=== PATIENT | male | born 1955 | race Caucasian/White ===

== ENCOUNTER 2018-07-08 17:15 | Emergency (ER) | payer BC, SELFPAY ==
[2018-07-08 17:22] VITALS: BP 160/97; PULSE 61; RESP 16; TEMP 36.6; O2SAT 98; BMI 27.5
--- NOTE | 2018-07-08 18:06 | PC.NURSE ---
Pt states he used to take blood pressure medicine for HTN, but after a gastric surgery he was having issues with hypotension and was advised by his doctor to stop the medicine. Today he was not feeling well, and noticed that he had a headache. Took his blood pressure and it was in the 170s. Was advised by his son, who is an RN, to come in and be seen. He did have an episode of chest aching earlier when taking his blood pressure, which has since resolved. Denies shortness of breath, palpitations, or chest pain currently.
[2018-07-08 18:09] VITALS: BP 162/96; PULSE 53; RESP 17; O2SAT 93
--- NOTE | 2018-07-08 18:20 | DI.RAD.S_ITS ---
PROCEDURE: XR ACUTE ABDOMEN SERIES INDICATIONS: vomiting/diarrhea, high blood pressure TECHNIQUE: One view chest and two views of the abdomen were acquired. COMPARISON: None. FINDINGS: Surgical changes and devices: None. Chest: No acute consolidation. There is scattered subsegmental atelectasis and/or scarring Heart size is normal. No pleural effusions. No pneumoperitoneum. Abdomen: Bowel gas pattern is nonspecific. There are some right-sided small bowel loops measuring 2.2 cm in diameter. No definite transition point. There are scattered nonspecific air-fluid levels. No suspicious calcifications. Visualized solid organ contours appear normal. Bones: No suspicious bony lesions. IMPRESSION: No specific pathologic bowel dilatation although several right-sided small bowel loops are prominent raising possibility of early or developing bowel obstruction. As clinically warranted, continued surveillance with abdominal series radiographs could be performed if patient's symptoms do not improve. Dictated by: Zac Delcid M.D. on 07/08/2018 at 19:04 Approved by: Zac Delcid M.D. on 07/08/2018 at 19:06
--- NOTE | 2018-07-08 18:28 | ED_ITS ---
HPI - Nausea/Vomiting/Diarrhea General Chief complaint: Hypertension Stated complaint: LIGHTHEAD, ELEVATED BLOOD PRESSURE,HEAD HURTS Time Seen by Provider: 07/08/18 18:14 Source: patient and family () Limitations: no limitations History of Present Illness HPI Narrative: This is a 63-year-old male that comes to the emergency department with concern for hypertension. Patient states for the last 24 hr he has been having vomiting and diarrhea, he states that his 2 granddaughters that he took 2 the movies yesterday initially had symptoms and then he developed symptoms. He has since stopped vomiting and having diarrhea and has been able to keep down a little bit of Gatorade and a very small amount of food. He gradually developed a headache today, was checking his blood pressure and a 1. 70/115. Patient states his blood pressure been labile at times. He used to take medication for blood pressure but after Jared fundoplication his pressures improved and he eventually had his medications stopping conjunction with his physician. He typically runs about 120/70 on his average. Patient does have a remote history of pericarditis about 30 years ago, he did have cardiac testing at that time. Otherwise he does not have any other major medical issues. He has also had tendon repair as well as hip resurfacing thing. Patient states that the headache was very gradual there is no thunderclap. He states these will happen occasionally when his blood pressure is somewhat high. He states that the headache is actually starting to improve as well. He did have a little bit of chest pain about Eleven or 12 this morning and it resolved. He has had this happen occasionally but does not have any particular rhythm to it. He has not had any shortness of breath he was not urinating he had his 1st urination this afternoon. He is not having any further diarrhea. Related Data Home Medications Medication Instructions Recorded Confirmed hydrochlorothiazide 12.5 mg PO QDAY #0 07/26/17 losartan 50 mg PO QDAY #0 07/26/17 omeprazole 20 mg PO BID #0 07/26/17 Allergies Allergy/AdvReac Type Severity Reaction Status Date / Time morphine [MORPHINE] Allergy Unknown Verified 07/08/18 17:22 Review of Systems Review of Systems All systems reviewed & are unremarkable except as noted in HPI and below Constitutional Denies fever(s), Reports headache(s) and Denies weakness ENT Ears, Nose, Mouth, and Throat: Reports headache(s) Cardiovascular Reports chest pain, Denies diaphoresis, Denies syncope, Denies palpitations and Denies dyspnea Respiratory Denies chest congestion, Denies cough and Denies dyspnea Gastrointestinal Gastrointestinal: Denies abdominal pain, Denies melena, Denies hematochezia, Denies constipation, Reports diarrhea ( resolved), Reports nausea ( resolved) and Reports vomiting ( Resolved) Genitourinary Denies urinary frequency and Reports other ( decreased urine output) Musculoskeletal Denies numbness and Denies tingling Neurologic Denies syncope, Reports headache(s), Denies numbness, Denies tingling and Denies weakness Endocrine Denies palpitations PFSH Medical History GERD (gastroesophageal reflux disease) (Resolved) Pericarditis (Resolved) Surgical History History of Jared fundoplication (Acute) Exam Narrative Exam Narrative: GENERAL: Alert and oriented x three, well-nourished, well- appearing male in mild distress. HEENT: Head normocephalic, atraumatic, EOMI, pupils reactive, face symmetric, moist mucous membranes NECK: Supple, full range of motion CARDIOVASCULAR: Regular rate and rhythm without murmurs, rubs or gallops. RESPIRATORY: Breath sounds equal bilaterally, no wheezes rales or rhonchi. ABDOMEN: Soft, nontender. Normoactive bowel sounds all 4 quadrants. No guarding or rebound, rigidity, no mass EXTREMITIES: Normal range of motion, no clubbing or edema. Neurovascularly intact NEUROLOGICAL: Cranial nerves II through XII grossly intact. Moving all extremities SKIN: Warm, dry, no petechiae, no rashes or lesions. Initial Vital Signs Initial Vital Signs: Vital Signs Temperature 97.9 F 07/08/18 17:22 Pulse Rate 61 07/08/18 17:22 Respiratory Rate 16 07/08/18 17:22 Blood Pressure 160/97 H 07/08/18 17:22 Pulse Oximetry 98 07/08/18 17:22 Course Orders Ordered: ED Orders 07/08/18 18:20 XR acute abdomen series Stat 07/08/18 18:50 Complete Blood Count AUTO DIFF Stat Comprehensive Metabolic Panel Stat Lipase Stat Troponin & CK Cardiac Panel Stat Discontinued Medications Sodium Chloride (Normal Saline 0.9%) 1,000 mls @ 1,000 mls/hr IV BOLUS ONE Stop: 07/08/18 19:19 Last Infusion: 07/08/18 19:58 Dose: 0 mls/hr Admin: 07/08/18 18:57 Dose: 1,000 mls/hr Potassium Chloride (Potassium Chloride) 40 meq PO NOW ONE Stop: 07/08/18 19:35 Last Admin: 07/08/18 19:57 Dose: 40 meq Vital Signs - 8 hr 07/08/18 17:22 07/08/18 18:09 07/08/18 18:55 Temperature 97.9 F Pulse Rate 61 53 L 52 L Respiratory Rate 16 17 12 Blood Pressure 160/97 H Blood Pressure [Right Arm] 162/96 H 161/101 H Pulse Oximetry 98 93 98 07/08/18 20:01 07/08/18 20:17 Temperature Pulse Rate 53 L 52 L Respiratory Rate 12 12 Blood Pressure 174/95 H Blood Pressure [Right Arm] 173/99 H Pulse Oximetry 97 100 MDM - Nausea/Vomiting/Diarrhea Lab Data Attestation: I reviewed the patient's lab results. Result diagrams: 07/08/18 18:50 07/08/18 18:50 Lab Results 07/08/18 07/08/18 Range/Units 18:50 18:50 WBC 5.7 (4.5-11.0) X10^3/uL RBC 5.17 (4.5-5.9) X10^6/uL Hgb 16.3 (13.5-17.5) g/dL Hct 46.1 (41-53) % MCV 89.2 (80-100) fL MCH 31.5 (26-34) PG MCHC 35.3 (30-36) % RDW 12.7 (11.6-14.8) % Plt Count 164 (150-400) X10^3/uL Neut % (Auto) 73.0 (50-75) % Lymph % (Auto) 13.6 L (25-40) % [place] % (Auto) 11.1 (3-14) % Eos % (Auto) 1.9 L (2-4) % Baso % (Auto) 0.4 (0-2) % Neut # (Auto) 4100 (4403-8392) /uL Sodium 141 (137-145) mmol/L Potassium 3.2 L (3.4-5.1) mmol/L Chloride 102 (98-107) mmol/L Carbon Dioxide 27 (22-32) mmol/L BUN 13 (9-20) mg/dL Creatinine 0.80 (0.66-1.25) mg/dL Estimated GFR > 60.0 (>60) mL/min BUN/Creatinine Ratio 16.3 (6-22) Glucose 105 (80-110) mg/dL Calcium 8.7 (8.4-10.2) mg/dL Total Bilirubin 0.6 (0.2-1.3) mg/dL AST 29 (17-59) IU/L ALT 45 (21-72) IU/L Alkaline Phosphatase 66 (38-126) U/L Total Creatine Kinase 149 (55-170) U/L CK-MB (CK-2) 0.79 (<2.37) ng/mL CK-MB (CK-2) Rel Index 0.5 L (1.5-5.0) % Troponin I < 0.012 (0.01-0.034) ng/mL Total Protein 6.6 (6.3-8.2) g/dL Albumin 4.1 (3.5-5.0) g/dL Globulin 2.5 (1.7-4.1) g/dL Albumin/Globulin Ratio 1.6 (1.0-2.8) Lipase 33 (23-300) U/L Imaging Data [facility]AS xray: Radiologist's impression: [address] [address] XRay Report Signed Patient: Bob Doran RMR#: [id number] : 4Acct:[id number] Age/Sex: 63 / MDate of Service: 07/08/18 Loc: ED Accession Number: [id number] Procedure: XR acute abdomen series Ordering Provider: Nettie Callahan D.O. PROCEDURE: XR ACUTE ABDOMEN SERIES INDICATIONS: vomiting/diarrhea, high blood pressure TECHNIQUE: One view chest and two views of the abdomen were acquired. COMPARISON: None. FINDINGS: Surgical changes and devices: None. Chest: No acute consolidation. There is scattered subsegmental atelectasis and/ or scarring Heart size is normal. No pleural effusions. No pneumoperitoneum. Abdomen: Bowel gas pattern is nonspecific. There are some right-sided small bowel loops measuring 2.2 cm in diameter. No definite transition point. There are scattered nonspecific air-fluid levels. No suspicious calcifications. Visualized solid organ contours appear normal. Bones: No suspicious bony lesions. IMPRESSION: No specific pathologic bowel dilatation although several right-sided small bowel loops are prominent raising possibility of early or developing bowel obstruction. As clinically warranted, continued surveillance with abdominal series radiographs could be performed if patient's symptoms do not improve. Dictated by: Zac Delcid M.D. on 07/08/2018 at 19:04 Approved by: Zac Delcid M.D. on 07/08/2018 at 19:06 ECG Data Attestation: I personally reviewed and interpreted this ECG as follows: Prior ECG tracings: available for review Interpretation: Sinus bradycardia with a rate of 54 DE 179 QRS 99 and QTC of 405. patient does not have any ST elevation, nonspecific T-wave changes. Patient has prior EKG which also shows sinus bradycardia, EKG appears similar and ST segments appear similar. MDM Narrative Medical decision making narrative: Patient's systolic pressure has been improving, diastolic is up and down. Lab work shows a slightly decreased potassium but otherwise no major changes, EKG not appear to show any acute changes. It has been greater than 6 hr since onset of any chest pain and resolution. Patient is feeling better in terms of his nausea and vomiting and diarrhea. This has ceased he has been able to keep down oral fluids and food so my suspicion for a bowel obstruction or partial bowel obstruction is low particularly since he had other family members with similar symptoms. Patient given oral dose of potassium and plan to monitor BP regularly at home and follow up with pcp. Discharge Plan Departure Patient Disposition: Home Clinical Impression: Hypertension, Nausea, vomiting and diarrhea Discharge Date/Time: 07/08/18 20:17 Interventions: ED Discharge Assessment Last Done: 07/08/18 20:17 Instructions: DI for High Blood Pressure Activity Restrictions/Additional Instructions: Follow-up with your primary care physician in the next 7-10 days for recheck. Continue to monitor blood pressure at home. General Return Instructions : Return to the Emergency Department for any new or worsening symptoms. Return to the Emergency Department for fevers greater than 100.4 persistent vomiting, black or bloody stools, recurrent chest pain or shortness of breath, persistent or very severe headaches, vision changes, new numbness, weakness, passing out or other new or concerning symptoms. Prescriptions: No Action losartan 50 MG tablet 50 mg PO QDAY Qty: 0 RF: 0 hydrochlorothiazide 12.5 MG capsule 12.5 mg PO QDAY Qty: 0 RF: 0 omeprazole 20 MG tablet,delayed release (DR/EC) 20 mg PO BID Qty: 0 RF: 0
[2018-07-08 18:55] VITALS: BP 161/101; PULSE 52; RESP 12; O2SAT 98
[2018-07-08] MEDS: SODIUM CHLORIDE 0.9% 1,000 ML 1000 ML IV (18:57)
[2018-07-08 18:59] LABS: Add Manual Diff / Slide Review NO; Basophils Percent Auto 0.4 % (0-2); Eosinophils Percent Auto 1.9 % (2-4); Hematocrit 46.1 % (41-53); Hemoglobin 16.3 g/dL (13.5-17.5); Lymphocytes Percent Auto 13.6 % (25-40); Mean Corpuscular HGB Conc 35.3 % (30-36); Mean Corpuscular Hemoglobin 31.5 PG (26-34); Mean Corpuscular Volume 89.2 fL (80-100); Monocytes Percent Auto 11.1 % (3-14); Neutrophils Absolute Auto 4100 /uL (3000-5900); Platelet Count 164 X10^3/uL (150-400); Red Blood Cell Count 5.17 X10^6/uL (4.5-5.9); Red Cell Distribution Width 12.7 % (11.6-14.8); White Blood Cell Count 5.7 X10^3/uL (4.5-11.0)
[2018-07-08 19:14] LABS: Alanine Aminotransferase 45 IU/L (21-72); Albumin 4.1 g/dL (3.5-5.0); Albumin Globulin Ratio 1.6 (1.0-2.8); Alkaline Phosphatase 66 U/L (38-126); Aspartate Aminotransferase 29 IU/L (17-59); BUN Creatinine Ratio 16.3 (6-22); Bilirubin Total 0.6 mg/dL (0.2-1.3); Blood Urea Nitrogen 13 mg/dL (9-20); Calcium 8.7 mg/dL (8.4-10.2); Carbon Dioxide 27 mmol/L (22-32); Chloride 102 mmol/L (98-107); Creatine Kinase 149 U/L (55-170); Estimated Glomerular Filt Rate > 60.0 mL/min (>60); Globulin 2.5 g/dL (1.7-4.1); Glucose 105 mg/dL (80-110); HEMOLYSIS 17 (0-50); Lipase 33 U/L (23-300); Potassium 3.2 mmol/L (3.4-5.1); Sodium 141 mmol/L (137-145); Total Protein 6.6 g/dL (6.3-8.2)
[2018-07-08 19:26] LABS: Troponin I < 0.012 ng/mL (0.01-0.034)
[2018-07-08 19:30] LABS: CKMB % Relative Index 0.5 % (1.5-5.0); Creatine Kinase MB 0.79 ng/mL (<2.37)
[2018-07-08] MEDS: POTASSIUM CHLORIDE 20 MEQ/15 ML UDC 40 MEQ PO (19:57)
[2018-07-08 20:01] VITALS: BP 173/99; PULSE 53; RESP 12; O2SAT 97
[2018-07-08 20:17] VITALS: BP 174/95; PULSE 52; RESP 12; O2SAT 100
== END 2018-07-08 20:17 | disposition home or self-care (01) ==
PROVIDERS: Emergency Provider Emergency Medicine; Family Provider Family Medicine; PCP Family Medicine
DX: I10 Essential (primary) hypertension (principal); R11.2 Nausea with vomiting, unspecified; R19.7 Diarrhea, unspecified
CPT/HCPCS: 36591; 74022; 80053; 82550; 82553; 83690; 84484; 85025; 93005; 96360; 99283; 99285

== ENCOUNTER 2019-07-08 23:11 | Emergency (ER) | payer BC, SELFPAY ==
[2019-07-08 23:15] VITALS: BP 175/99; PULSE 53; RESP 20; TEMP 36.9; O2SAT 96; BMI 27.9
--- NOTE | 2019-07-08 23:24 | DI.RAD.S_ITS ---
PROCEDURE: XR CHEST 1V INDICATIONS: chest pain TECHNIQUE: One view of the chest was acquired. COMPARISON: [facility], , CHEST 1VW (PORTABLE), 06/24/2010, 23:39. FINDINGS: Surgical changes and devices: None. Lungs and pleura: Lungs are clear. No pleural effusions or pneumothorax. Mediastinum: Mediastinal contours appear normal. Heart size is normal. Bones and chest wall: No suspicious bony lesions. Overlying soft tissues appear unremarkable. IMPRESSION: No acute cardiopulmonary disease process. Dictated by: Danica Duckworth MD, PhD on 07/09/2019 at 7:56 Approved by: Danica Duckworth MD, PhD on 07/09/2019 at 7:57
--- NOTE | 2019-07-08 23:26 | ED_ITS ---
HPI - Chest Pain General Chief Complaint: Chest Pain Stated Complaint: chest pain Time Seen by Provider: 07/08/19 23:26 Source: patient Mode of arrival: Ambulatory Limitations: no limitations History of Present Illness HPI narrative: The patient developed central sternal chest pain around noon today. He felt the pain was fairly around his chest, the pain resolved within 20-30 minutes. The pain did not radiate. He had no associated dyspnea, palpitations or weakness/dizziness. He had an episode similar to the above about 1 hour ago, after he went to bed. He has a prior history of pericarditis around the age of 29, he has had intermittent episodes of chest pain since then. Prior cardiac evaluation has been benign. He has no recent injury, no recent illness. He has no proof history of CAD. He has previously been on medications for hypertension, but stopped medications due to hypotension with medication. His blood pressure at home tonight was 170s. He is routinely 120 systolic. He has no history of hyperlipidemia, or diabetes. He is a nonsmoker. His father at the age of 58 due to a cardiac arrest. He does have a history of GERD. He has a history of Jared fundoplication. Related Data Home Medications Medication Instructions Recorded Confirmed hydrochlorothiazide 12.5 mg PO QDAY #0 07/26/17 losartan 50 mg PO QDAY #0 07/26/17 omeprazole 20 mg PO BID #0 07/26/17 Allergies Allergy/AdvReac Type Severity Reaction Status Date / Time morphine [MORPHINE] Allergy Unknown Verified 07/08/18 17:22 Review of Systems Review of Systems ROS Unobtainable: All systems reviewed & are unremarkable except as noted in HPI and below Constitutional Constitutional: Denies lethargy and Denies weakness ENT Ears, Nose, Mouth, and Throat: Denies neck pain and Denies sore throat Cardiovascular Cardiovascular: Reports chest pain, Denies irregular heart rhythm, Denies lightheadedness, Denies palpitations, Denies dyspnea, Denies dyspnea on exertion and Denies orthopnea Respiratory Respiratory: Denies cough, Denies dyspnea, Denies dyspnea on exertion and Denies wheezing Gastrointestinal Gastrointestinal: Denies abdominal pain, Denies change in bowel habits, Denies diarrhea, Denies nausea and Denies vomiting Musculoskeletal Musculoskeletal: Denies back pain and Denies neck pain Integumentary/Breasts Skin/Breast: Denies pruritus, Denies erythema, Denies rash and Denies wounds Neurologic Neurologic: Denies confusion and Denies weakness Psychiatric Psychiatric: Denies anxiety and Denies confusion Endocrine Endocrine: Denies palpitations Allergic/Immunologic Allergic/Immunologic: Denies wheezing Patient History Medical History (Updated 07/09/19 @ 00:48 by Raf Jones MD) Chest pain (Acute) GERD (gastroesophageal reflux disease) (Resolved) Pericarditis (Resolved) Surgical History History of Jared fundoplication (Acute) Social History Smoking Status: Never smoker alcohol intake frequency: holidays/special occasions only Alcohol type: beer Substance Use Type: does not use Exam Initial Vital Signs Initial Vital Signs: Vital Signs Temperature 98.4 F 07/08/19 23:15 Pulse Rate 53 L 07/08/19 23:15 Respiratory Rate 20 07/08/19 23:15 Blood Pressure 175/99 H 07/08/19 23:15 Pulse Oximetry 96 07/08/19 23:15 Const General: cooperative and well developed Nutritional Appearance: well nourished Orientation: alert, awake and oriented x3 HENMT Head: normocephalic and atraumatic Nose: external nose normal Mouth: oral mucosae normal and moist mucous membranes Throat: posterior oropharynx normal Eyes General: appearance normal, both eyes and all related structures Eyelids: eyelids normal Conjunctivae: conjunctivae normal Sclera: sclerae normal Pupils: PERRL EOM: EOM intact bilaterally Neck Neck: No JVD Chest Chest: normal palpation of entire chest wall Resp Effort & Inspection: normal respiratory effort and able to speak in complete sentences Auscultation: clear to auscultation bilaterally, no rales, no rhonchi and no wheezes Cardio Rate: regular rate Rhythm: regular rhythm Heart Sounds: S1 normal, S2 normal, no click, no gallops, no murmurs and no rubs Pulses: normal peripheral pulses GI Inspection: non-distended Palpation: soft, no hepatosplenomegaly and No tender Auscultation: normal bowel sounds Back/Spine/Pelvis Back: No back tenderness Skin General: no rashes or lesions noted Neuro General: alert, oriented x3, gait normal and no focal motor deficits Speech: speech normal Course Orders Ordered: ED Orders 07/08/19 23:22 Complete Blood Count AUTO DIFF Stat Comprehensive Metabolic Panel Stat Lipase Stat Partial Thromboplastin Time Stat Prothrombin Time INR Stat Troponin & CK Cardiac Panel Stat 07/08/19 23:24 XR chest 1V Stat Vital Signs Vital signs: Vital Signs - 8 hr 07/08/19 23:15 Temperature 98.4 F Pulse Rate 53 L Respiratory Rate 20 Blood Pressure 175/99 H Pulse Oximetry 96 MDM - Chest Pain Lab Data Result diagrams: 07/08/19 23:22 07/08/19 23:22 Labs: Lab Results 07/08/19 07/08/19 07/08/19 Range/Units 23:22 23:22 23:22 WBC 6.3 (4.5-11.0) X10^3/uL RBC 5.27 (4.5-5.9) X10^6/uL Hgb 16.1 (13.5-17.5) g/dL Hct 46.5 (41-53) % MCV 88.2 (80-100) fL MCH 30.5 (26-34) PG MCHC 34.6 (30-36) % RDW 13.7 (11.6-14.8) % Plt Count 202 (150-400) X10^3/uL Neut % (Auto) 56.0 (50-75) % Lymph % (Auto) 28.4 (25-40) % [place] % (Auto) 11.0 (3-14) % Eos % (Auto) 3.4 (2-4) % Baso % (Auto) 1.2 (0-2) % Neut # (Auto) 3500 (2042-1987) /uL Lymph # (Auto) 1800 (4976-4434) /uL [place] # (Auto) 700 (0-900) /uL Eos # (Auto) 200 (0-450) /uL Baso # (Auto) 100 (0-100) /uL PT 11.0 (10.1-12.7) SECONDS INR 1.0 (0.9-1.3) APTT 33 (26.4-36.2) SECONDS Sodium 139 (137-145) mmol/L Potassium 3.6 (3.4-5.1) mmol/L Chloride 104 (98-107) mmol/L Carbon Dioxide 25 (22-32) mmol/L BUN 21 H (9-20) mg/dL Creatinine 1.10 (0.66-1.25) mg/dL Estimated GFR > 60.0 (>60) mL/min BUN/Creatinine Ratio 19.1 (6-22) Glucose 150 H (80-110) mg/dL Calcium 9.4 (8.4-10.2) mg/dL Total Bilirubin 0.5 (0.2-1.3) mg/dL AST 27 (17-59) IU/L ALT 29 (<50) IU/L Alkaline Phosphatase 105 (38-126) U/L Total Creatine Kinase 197 H (55-170) U/L CK-MB (CK-2) 1.78 (<2.37) ng/mL CK-MB (CK-2) Rel Index 0.9 L (1.5-5.0) % Troponin I < 0.012 (0.01-0.034) ng/mL Total Protein 6.9 (6.3-8.2) g/dL Albumin 4.2 (3.5-5.0) g/dL Globulin 2.7 (1.7-4.1) g/dL Albumin/Globulin Ratio 1.6 (1.0-2.8) Lipase 75 (23-300) U/L Imaging Data Chest x-ray: My impression: No acute process identified. ECG Data Attestation: I personally reviewed and interpreted this ECG as follows: (Sinus Matt rate 51 beats per minute. Normal intervals. Left axis deviation with LVH. No ectopy. No acute ST T wave changes.) Discharge Plan Departure Patient Disposition: Home Clinical Impression: Chest pain Qualifiers: Chest pain type: unspecified Qualified Code(s): R07.9 - Chest pain, unspecified Instructions: DI for Chest Pain Activity Restrictions/Additional Instructions: I recommend you take be reaspirated 1 daily. I would suggest to undergo cardiac testing, your doctor can arrange this. Also I will give you contact information for local cardiologists, you may call and make your own appointment. Return the ER for worsening chest pain, difficulty breathing, or weakness/dizziness. Prescriptions: No Action losartan 50 MG tablet 50 mg PO QDAY Qty: 0 RF: 0 hydrochlorothiazide 12.5 MG capsule 12.5 mg PO QDAY Qty: 0 RF: 0 omeprazole 20 MG tablet,delayed release (DR/EC) 20 mg PO BID Qty: 0 RF: 0 Referrals: Ej Cary MD [Physician] - Boni Lorenzo MD [Primary Care Provider] -
[2019-07-08 23:33] LABS: Add Manual Diff / Slide Review NO; Basophils Absolute Auto 100 /uL (0-100); Basophils Percent Auto 1.2 % (0-2); Eosinophils Absolute Auto 200 /uL (0-450); Eosinophils Percent Auto 3.4 % (2-4); Hematocrit 46.5 % (41-53); Hemoglobin 16.1 g/dL (13.5-17.5); Lymphocytes Absolute Auto 1800 /uL (1100-4500); Lymphocytes Percent Auto 28.4 % (25-40); Mean Corpuscular HGB Conc 34.6 % (30-36); Mean Corpuscular Hemoglobin 30.5 PG (26-34); Mean Corpuscular Volume 88.2 fL (80-100); Monocytes Absolute Auto 700 /uL (0-900); Neutrophils Absolute Auto 3500 /uL (1500-7000); Platelet Count 202 X10^3/uL (150-400); Red Blood Cell Count 5.27 X10^6/uL (4.5-5.9); Red Cell Distribution Width 13.7 % (11.6-14.8); White Blood Cell Count 6.3 X10^3/uL (4.5-11.0)
[2019-07-08 23:38] LABS: PTT Partial Thromboplastin Tim 33 SECONDS (26.4-36.2)
[2019-07-08 23:42] LABS: Alanine Aminotransferase 29 IU/L (<50); Albumin 4.2 g/dL (3.5-5.0); Albumin Globulin Ratio 1.6 (1.0-2.8); Alkaline Phosphatase 105 U/L (38-126); Aspartate Aminotransferase 27 IU/L (17-59); BUN Creatinine Ratio 19.1 (6-22); Bilirubin Total 0.5 mg/dL (0.2-1.3); Blood Urea Nitrogen 21 mg/dL (9-20); Calcium 9.4 mg/dL (8.4-10.2); Carbon Dioxide 25 mmol/L (22-32); Chloride 104 mmol/L (98-107); Creatine Kinase 197 U/L (55-170); Estimated Glomerular Filt Rate > 60.0 mL/min (>60); Globulin 2.7 g/dL (1.7-4.1); Glucose 150 mg/dL (80-110); HEMOLYSIS < 15 (0-50); Lipase 75 U/L (23-300); Potassium 3.6 mmol/L (3.4-5.1); Sodium 139 mmol/L (137-145); Total Protein 6.9 g/dL (6.3-8.2)
[2019-07-08 23:53] LABS: Troponin I < 0.012 ng/mL (0.01-0.034)
[2019-07-08 23:57] LABS: CKMB % Relative Index 0.9 % (1.5-5.0); Creatine Kinase MB 1.78 ng/mL (<2.37)
[2019-07-09 01:00] VITALS: BP 160/80; PULSE 64; RESP 18; O2SAT 99
== END 2019-07-09 01:01 | disposition home or self-care (01) ==
PROVIDERS: Emergency Provider Emergency Medicine; Family Provider Family Medicine; PCP Family Medicine
DX: R07.89 Other chest pain (principal)
CPT/HCPCS: 36415; 71045; 80053; 82550; 82553; 83690; 84484; 85025; 85610; 85730; 93005; 99283; 99285

== ENCOUNTER → 2020-12-27 12:57 | Outpatient (CLI) | payer OTHER, SELFPAY ==
--- NOTE | 2020-12-27 12:58 | DI.RAD.S_ITS ---
PROCEDURE: XR THORACIC SPINE 3V INDICATIONS: RIB PAIN TECHNIQUE: 3 views of the thoracic spine were acquired. COMPARISON: None. FINDINGS: Bones: No acute fracture identified. Diffuse spondylosis. Multilevel spondylosis/endplate changes. Diffuse facet arthropathy. Lower cervical spondylosis also noted. Soft tissues: No paravertebral stripe thickening. IMPRESSION: Diffuse cervical and thoracic spondylosis and facet arthropathy. Dictated by: Zac Delcid M.D. on 12/27/2020 at 13:29 Approved by: Zac Delcid M.D. on 12/27/2020 at 13:30
== END ==
PROVIDERS: Family Provider Family Medicine; PCP Family Medicine; Referring Provider Physical Medicine & Rehabilitation; Visit Provider Physical Medicine & Rehabilitation
DX: R07.81 Pleurodynia (principal); S32.020A Wedge compression fracture of second lumbar vertebra, initial encounter for closed fracture; M47.22 Other spondylosis with radiculopathy, cervical region; M47.24 Other spondylosis with radiculopathy, thoracic region
CPT/HCPCS: 72072; 99214

== ENCOUNTER → 2021-01-08 08:39 | Outpatient (CLI) | payer OTHER, SELFPAY ==
--- NOTE | 2021-01-08 08:41 | DI.MRI.S_ITS ---
PROCEDURE: MR LUMBAR SPINE WO CON INDICATIONS: Chronic progressive neck pain TECHNIQUE: Noncontrast sagittal T1 spin echo and T2 fast echo, sagittal STIR, axial T1 and T2 fast spin echo through the lumbar spine. In cases with scoliosis, additional coronal T2 fast spin echo may be performed. COMPARISON: [facility], RG, XR L-SPINE 2-3V, 12/03/2020, 8:35. FINDINGS: Image quality: Excellent. Alignment and Curvature: No plain films are available for comparison, for numbering purposes. Thus, for the purposes of this examination, 5 lumbar type vertebral bodies will be presumed, as denoted on the montage panel. This should be confirmed and correlated with plain films, prior to any lumbar spinal intervention. There is loss of normal lumbar lordosis. Bone Marrow: Diffuse heterogeneous low T1 signal intensity throughout the marrow space of the lumbar spine and sacrum. Moderate chronic wedging of L2.. No acute vertebral body compression fractures. Minimal reactive signal within the endplates adjacent to the T12-L1, L1-L2, and L2-L3 intervertebral discs. Spinal Cord: Conus medullaris terminates at the mid L1 level. Visualized cord demonstrates normal signal and size. Paraspinous Soft Tissues: No paravertebral masses. T12-L1: Normal appearance. L1-L2: Mild disc desiccation and diffuse disc bulge. Mild facet and ligamentum flavum hypertrophy. Mild epidural lipomatosis. Mild canal stenosis. No foraminal stenosis. L2-L3: Mild disc desiccation and diffuse disc bulge. Mild facet and ligamentum flavum hypertrophy. Mild epidural lipomatosis. Mild canal stenosis. Mild bilateral foraminal stenosis. L3-L4: Mild disc desiccation and diffuse disc bulge. Mild facet and ligamentum flavum hypertrophy. Mild epidural lipomatosis. Mild canal stenosis. Mild bilateral foraminal stenosis. L4-L5: Mild facet and ligamentum flavum hypertrophy. Mild epidural lipomatosis. Mild canal stenosis. Mild to moderate subarticular foraminal stenosis bilaterally. L5-S1: Mild bilateral facet hypertrophy. No significant canal stenosis. Mild right and [id number] left subarticular foraminal stenosis. IMPRESSION: 1. Diffuse heterogeneous low T1 signal intensity within the visualized marrow space. Finding may represent a diffuse marrow infiltrating process. Clinical and laboratory correlation is recommended. 2. Multilevel degenerative disc and facet disease, as well as ligamentum flavum hypertrophy and epidural lipomatosis. 3. Mild multilevel canal stenosis. 4. Multilevel foraminal stenoses, worst at L4-L5 and L5-S1, where there are mild to moderate foraminal stenoses as described above. Dictated by: Raghavendra Menendez M.D. on 01/10/2021 at 9:46 Approved by: Raghavendra Menendez M.D. on 01/10/2021 at 9:50
== END ==
PROVIDERS: Family Provider Family Medicine; PCP Family Medicine; Referring Provider Physical Medicine & Rehabilitation; Visit Provider Physical Medicine & Rehabilitation
DX: S32.020A Wedge compression fracture of second lumbar vertebra, initial encounter for closed fracture (principal); M51.36 Other intervertebral disc degeneration, lumbar region; M48.061 Spinal stenosis, lumbar region without neurogenic claudication; M48.07 Spinal stenosis, lumbosacral region; M54.2 Cervicalgia; E88.2 Lipomatosis, not elsewhere classified
CPT/HCPCS: 72148

== ENCOUNTER → 2021-02-18 08:42 | Outpatient (CLI) | payer OTHER, SELFPAY ==
--- NOTE | 2021-02-18 08:43 | DI.RAD.S_ITS ---
PROCEDURE: XR CERVICAL SPINE 4V OR 5V INDICATIONS: Chronic progressive neck pain TECHNIQUE: 2 views of the cervical spine acquired. COMPARISON: None. FINDINGS: Bones: No fractures or dislocations to the T1 level. Oblique images demonstrate no bony foraminal stenoses. Prior C 3 4 fusion procedure, versus congenital variant fusion at that level. On the oblique views there is slight narrowing of the C4-C5 neural foramen on the right Soft tissues: No prevertebral soft tissue swelling. 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 Slight facet osteoarthritis at the C4-C5 level, right greater than left. Dictated by: Damien Price M.D. on 02/23/2021 at 18:00 Approved by: Damien Price M.D. on 02/23/2021 at 18:03
== END ==
PROVIDERS: Family Provider Family Medicine; PCP Family Medicine; Referring Provider Physical Medicine & Rehabilitation; Visit Provider Physical Medicine & Rehabilitation
DX: M54.12 Radiculopathy, cervical region (principal); M47.812 Spondylosis without myelopathy or radiculopathy, cervical region; M47.816 Spondylosis without myelopathy or radiculopathy, lumbar region; S32.020A Wedge compression fracture of second lumbar vertebra, initial encounter for closed fracture; M47.24 Other spondylosis with radiculopathy, thoracic region; Z68.29 Body mass index [BMI] 29.0-29.9, adult
CPT/HCPCS: 72050; 99213

== ENCOUNTER → 2021-03-28 08:51 | Outpatient (CLI) | payer OTHER, SELFPAY ==
[2021-03-28 14:17] LABS: COVID19 -Nasal RAPID Negative (Negative)
== END ==
PROVIDERS: Family Provider Family Medicine; PCP Family Medicine; Visit Provider Physical Medicine & Rehabilitation
DX: Z20.822 Contact with and (suspected) exposure to COVID-19 (principal)
CPT/HCPCS: 87635; C9803

== ENCOUNTER 2021-03-29 14:50 | Outpatient (CLI) | payer OTHER, SELFPAY ==
[2021-03-29] VITALS (10 sets, daily range): BP systolic 117–146; BP diastolic 68–87; PULSE 42–53; RESP 12–18; TEMP 36.6; O2SAT 96–99
--- NOTE | 2021-03-29 14:54 | DI.RAD.S_ITS ---
PROCEDURE: PAIN L/S FACET INJ/BLK 1ST ROWENA COMPARISON: [facility], MR, MR LUMBAR SPINE WO CON, 01/08/2021, 8:52. INDICATIONS: SPONDYLOSIS FINDINGS: Fluoroscopic spot filming was performed to verify placement of spinal needles at the L1-L2 and L2-L3 levels on both sides, as labeled on the films. Appropriate location of the needle tips was confirmed by injection of iodinated contrast. IMPRESSION: Intraprocedural examination within normal limits. Dictated by: Roger Funez M.D. on 03/29/2021 at 15:44 Approved by: Roger Funez M.D. on 03/29/2021 at 15:45
[2021-03-29] MEDS: fentaNYL 100 MCG/2 ML INJ 50 MCG IV (15:29)
[2021-03-29] MEDS: MIDAZOLAM 5 MG/5 ML VIAL IV (15:29)
[2021-03-29] MEDS: IOPAMIDOL 15 ML VIAL 3 ML INJ (15:33)
[2021-03-29] MEDS: BUPIVACAINE 0.5% (PF) VIAL 5 ML INJ (15:33)
[2021-03-29] MEDS: LIDOCAINE 1% 20 ML 10 ML INJ (15:34)
[2021-03-29] MEDS: BETAMETHASONE 30 MG/5 ML MDV 12 MG INJ (15:34)
--- NOTE | 2021-03-29 15:47 | P.PCN_ITS ---
Date/Time/Diagnoses Date of procedure: 03/29/21 Time of procedure: 15:47 Pre-procedure diagnosis: 1. FACET ARTHROPATHY 2. AXIAL LBP 3. MULTILEVEL DDD Post-procedure diagnosis: same Procedure Notes Procedure: 1. FLUOROSCOPICALLY GUIDED CONTRAST CONTROLLED FACET JOINT INJECTIONS BILATERAL L1/2, L2/3 Indications: Bob is referred by Dr. Lorenzo for treatment of Axial LBP Physician: Raf Matt Total Fluoroscopy time (seconds): 9 Total sedation minutes: 13 Complications: none Procedure in detail & Post-procedure care: FINDINGS Multilevel Facet Arthropathy with Clinically significant axial LBP DESCRIPTION OF PROCEDURE Fluoroscopically guided, contrast-controlled bilateral L1/2, L2/3 facet joint injections. Following review of allergy and review of potential side effects and complications, including, but not necessarily limited to, infection, allergic reaction, local tissue breakdown, stroke, temporary or permanent nerve injury, paralysis, and possible , the patient indicated that the patient understood and agreed to proceed. An informed consent document was signed by the patient, witnessed by a nurse, and placed in the patient's chart. Additionally, other treatment options including medications, modalities, and physical therapy were reviewed with the patient. After review of previous anaesthesic history and IV conscious sedation the patient was deemed safe to proceed with today's procedure with IV conscious sedation as ASA class II designation. Safety time-out was performed to confirm patient ID, procedure to be performed and site of procedure. IV sedation was accomplished with a combination of 2mg of Versed and 50mcg of Fentanyl administered by the RN after DO order, titrated to patient comfort during the course of the procedure while the patient remained responsive to all verbal commands In the prone position, following sterile prep and drape of the lumbar region, the posterior aspect of the L1/2, L2/3 facet joints were identified f luoroscopically. The skin was anesthetized via a 25-gauge 1.5-inch needle with 1% lidocaine solution into the corresponding facet joints. At this point, a 22- gauge 3.5-inch spinal needle was atraumatically introduced and advanced under fluoroscopic guidance into the corresponding facet joints. Following negative aspiration, injections of approximately 0.2cc of Isovue 200 confirmed interarticular placement without vascular uptake. The identical procedure was then performed at the L1/2, L2/3 facet joints on the left. Radiological data, including multiple fluoroscopic views of the lumbosacral spine, reveal a spinal needle at the L1/2, L2/3 facet joints bilaterally. Subsequent views show flow of contrast material both superiorly and inferiorly within the joint space without vascular or intrathecal uptake. At this point, a total of 0.5cc including a mixture of 0.25cc Marcaine and 0.25cc betamethasone was injected without complication into each of the corresponding facet joints. The patient tolerated the procedure well without signs or symptoms of complications prior to transfer to the recovery area continued monitoring without incident. The patient was then transferred to the recovery area where they were observed for an appropriate period of time after the injection. The patient reported a VAS score of 7 prior to the procedure and a post-procedure VAS of 0. POST OP INSTRUCTIONS The patient was provided a Pain Log to continue to record their response to the target-specific procedure prior to follow-up visit with their referring physician. Additionally, specific post-injection care instructions and a contact number to our office were provided if concerns arise regarding possible complications associated with the procedure are suspected.
--- NOTE | 2021-03-29 17:12 | PC.NURSE ---
Patient returned back from procedure heart rate 43-53 bpm. He reports that he is a little dizzy and a little more then baseline. He also states that he has been having episodes over the last 6 months were he would stand and fall to his knees because he was dizzy, he also reports he has a blood pressure 70's/40's the other day. Patient continued to feel dizzy when standing at chair a little more then baseline, Dr Matt in to assess patient and ok with him d/c home at this time. Spoke with patients Jazmine and informed her of heart rate and encouraged them to see his PCP for further evaluation.
== END 2021-03-29 16:25 | disposition home or self-care (01) ==
LOC: RAD 14:53
PROVIDERS: Family Provider Family Medicine; PCP Family Medicine; Referring Provider Physical Medicine & Rehabilitation; Visit Provider Physical Medicine & Rehabilitation
DX: M47.816 Spondylosis without myelopathy or radiculopathy, lumbar region (principal); M51.36 Other intervertebral disc degeneration, lumbar region; M54.5 Low back pain
CPT/HCPCS: 64493; 64494; 99152; J0702; J2250; J3010

== ENCOUNTER 2021-10-31 16:58 | Emergency (ER) | payer OTHER, SELFPAY ==
[2021-10-31 17:42] VITALS: BP 134/86; PULSE 83; RESP 16; TEMP 36.6; O2SAT 97; BMI 29.1
--- NOTE | 2021-10-31 17:49 | DI.RAD.S_ITS ---
PROCEDURE: XR FOOT RT MIN 3V INDICATIONS: chopping wood/injured TECHNIQUE: 3 views of the foot were acquired. COMPARISON: None. FINDINGS: Soft tissue swelling in the dorsal forefoot. No fracture or dislocation. No radiopaque foreign body identified. IMPRESSION: Soft tissue swelling in the dorsal forefoot without acute osseous injury. Dictated by: Mook Granger M.D. on 10/31/2021 at 18:31 Approved by: Mook Granger M.D. on 10/31/2021 at 18:32
--- NOTE | 2021-10-31 17:50 | DI.RAD.S_ITS ---
PROCEDURE: XR HIP W PEL IF DONE LT 2V INDICATIONS: fall chopping wood TECHNIQUE: Two views of the left hip were acquired. COMPARISON: None. FINDINGS: No fracture or dislocation. Moderate bilateral hip osteoarthritic changes. IMPRESSION: No acute finding Dictated by: Mook Granger M.D. on 10/31/2021 at 18:31 Approved by: Mook Granger M.D. on 10/31/2021 at 18:31
[2021-10-31 21:06] VITALS: BP 130/89; PULSE 80; O2SAT 98
--- NOTE | 2021-10-31 21:10 | ED.LOWEXIN ---
HPI - Extremity Injury (Lower) General Chief Complaint: Extremity Injury, Lower Stated Complaint: INJURY RT FOOT LEFT HIP PAIN Time Seen by Provider: 10/31/21 21:03 Source: patient Mode of arrival: Ambulatory Limitations: no limitations History of Present Illness HPI Narrative: 66-year-old male who is here for evaluation of injuries that he sustained when he was cutting some wood and a log fell down and hit him on his left shoulder and then on his right foot. He states he tried to twist to get out of the way and then fell down and landed on his left hip. Did not hit his head. Is ambulatory. Has swelling to his right foot. He was concerned that he broke a bone in his foot. He states that his left shoulder is sore but really has no discomfort. Related Data Home Medications Medication Instructions Recorded Confirmed hydrochlorothiazide 12.5 mg capsule 12.5 mg PO QDAY #0 07/26/17 10/25/21 losartan 50 mg tablet 50 mg PO QDAY #0 07/26/17 10/25/21 atorvastatin 20 mg tablet 20 mg PO DAILY 12/27/20 10/25/21 Previous Rx's Medication Instructions Recorded celecoxib 200 mg capsule (Celebrex) 200 mg PO DAILY #30 cap 10/13/21 Allergies Allergy/AdvReac Type Severity Reaction Status Date / Time morphine [MORPHINE] Allergy Unknown Verified 10/25/21 16:14 Review of Systems Constitutional Constitutional: Denies fever(s) Musculoskeletal Musculoskeletal: Reports system reviewed and no additional complaints, except as documented and Reports as per HPI Integumentary/Breasts Skin/Breast: Reports system reviewed and no additional complaints, except as documented and Reports as per HPI Neurologic Neurologic: Reports system reviewed and no additional complaints, except as documented and Reports as per HPI Hematologic/Lymphatic On Anticoagulants: No 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), thoracic Facet arthropathy, cervical Facet arthropathy, lumbar GERD (gastroesophageal reflux disease) Pericarditis Subacromial impingement of left shoulder Surgical History History of Jared fundoplication Family History Father Heart attack Mother Cancer Social History Smoking Status: Never smoker Smoking Status: Never smoker alcohol intake frequency: holidays/special occasions only Alcohol type: beer Substance Use Type: does not use Exam Initial Vital Signs Initial Vital Signs: Vital Signs Temperature 97.8 F 10/31/21 17:42 Pulse Rate 83 10/31/21 17:42 Respiratory Rate 16 10/31/21 17:42 Blood Pressure 134/86 10/31/21 17:42 Pulse Oximetry 97 10/31/21 17:42 HENMT Head: normal to inspection and normocephalic Resp Effort & Inspection: normal respiratory effort Cardio Rate: regular rate Pulses: dorsalis pedis present on the right Skin Other: Bruising and swelling on the dorsum of the right foot to include the toes specifically on the lateral aspect. Neuro General: patient alert, patient awake, patient oriented x3 and moves all extremities Extrem Other: Bruising to the dorsum of the right foot however compartments are soft. His right ankle is unremarkable. Wrist was right lower extremities unremarkable. Is ambulatory. Full range of motion left shoulder. Course Orders Ordered: ED Orders 10/31/21 17:49 XR foot RT min 3V Stat 10/31/21 17:50 XR hip w pel if done LT 2V Stat Vital Signs Vital signs: Vital Signs - 8 hr 10/31/21 21:06 Pulse Rate 80 Blood Pressure 130/89 Pulse Oximetry 98 MDM - Extremity Injury (Lower) Imaging Data Extremity x-ray #1: Radiologist's Impression: [address] [address] XRay Report Signed Patient: Bob Doran MR#: [id number] : 1955 Acct:[id number] Age/Sex: 66 / M Date of Service: 10/31/21 Loc: ED Accession Number: [id number] ?? Procedure: XR foot RT min 3V Ordering Provider: Raf Jones MD PROCEDURE:? XR FOOT RT MIN 3V ? INDICATIONS:? chopping wood/injured ? TECHNIQUE:? 3 views of the foot were acquired.? ? COMPARISON:? None. ? FINDINGS:? ? Soft tissue swelling in the dorsal forefoot.? No fracture or dislocation.? No radiopaque foreign body identified. ? ? IMPRESSION:? Soft tissue swelling in the dorsal forefoot without acute osseous injury. ? ? Dictated by: Mook Granger M.D. on 10/31/2021 at 18:31 ? ? Approved by: Mook Granger M.D. on 10/31/2021 at 18:32?? Extremity x-ray #2: Radiologist's Impression: [address] [address] XRay Report Signed Patient: Bob Doran MR#: [id number] : 1955 Acct:[id number] Age/Sex: 66 / M Date of Service: 10/31/21 Loc: ED Accession Number: [id number] ?? Procedure: XR hip w pel if done LT 2V Ordering Provider: Raf Jones MD PROCEDURE:? XR HIP W PEL IF DONE LT 2V ? INDICATIONS:? fall chopping wood ? TECHNIQUE:? Two views of the left hip were acquired.? ? COMPARISON:? None. ? FINDINGS:? ? No fracture or dislocation.? Moderate bilateral hip osteoarthritic changes. ? IMPRESSION:? No acute finding ? ? Dictated by: Mook Granger M.D. on 10/31/2021 at 18:31 ? ? Approved by: Mook Granger M.D. on 10/31/2021 at 18:31? MDM Narrative Medical decision making narrative: X-ray showed no signs of fracture. Patient is ambulatory. Low suspicion for compartment syndrome. Is neurovascularly intact. Patient was given conservative measure that he could try to improve his symptoms. Was given return precautions. Expressed understanding and agreement plan. Discharge Plan Departure Patient Disposition: Home Clinical Impression: Contusion of foot, right Instructions: DI for Contusion, How To Perform RICE (Rest, Ice, Compress, Elevate) Activity Restrictions/Additional Instructions: There were no fractures noted on the x-rays that were performed today. I recommend that you keep your foot elevated and keep ice over the area. I would not be surprised if the bruising worsened over the past couple days. If your pain worsens or you develop any new symptoms please return to the emergency department for further evaluation. Prescriptions: No Action losartan 50 MG tablet 50 mg PO QDAY Qty: 0 0RF hydrochlorothiazide 12.5 MG capsule 12.5 mg PO QDAY Qty: 0 0RF celecoxib [Celebrex] 200 mg capsule 200 mg PO DAILY Qty: 30 2RF atorvastatin 20 mg tablet 20 mg PO DAILY 0RF Referrals: Boni Lorenzo MD [Primary Care Provider] -
--- NOTE | 2021-10-31 21:17 | PC.NURSE ---
received from triage, pt was hit by a log this afternoon states the shoulder and hip are better just sore, the right foot feels like it is broken, foot noted bruised and swollen no obvious deformities
== END 2021-10-31 21:17 | disposition home or self-care (01) ==
PROVIDERS: Emergency Provider Emergency Medicine; Family Provider Family Medicine; PCP Family Medicine
DX: S90.31XA Contusion of right foot, initial encounter (principal); W20.8XXA Other cause of strike by thrown, projected or falling object, initial encounter; Y93.89 Activity, other specified
CPT/HCPCS: 73502; 73630; 99281; 99283

== ENCOUNTER 2021-11-10 18:57 | Emergency (ER) | payer OTHER, SELFPAY ==
[2021-11-10 19:08] VITALS: BP 174/84; PULSE 61; RESP 15; TEMP 36.8; O2SAT 98; BMI 29.2
--- NOTE | 2021-11-10 19:08 | ED.GENADULT ---
HPI - General Adult General Chief complaint: Wound/Laceration Stated complaint: Rt Foot Turning Black and Blistering Time Seen by Provider: 11/10/21 19:07 History of Present Illness HPI narrative: With history of hypertension and hyperlipidemia without diabetes presents with an area of blistering and developing erythema over the dorsum of the right foot. On the 31 of October he was seen in the emergency room after a log that he was cutting fell onto the dorsum of the right foot. X-rays were done there were no broken bones and he does not describe significant abrasion or skin breakdown to the area. He did have quite a bit of pain and bruising that extended up into the ankle most of which has resolved at this point. Over the last 5 days he has noticed an increasing blister in over the last 2 days increasing erythema spreading from the blister. He describes no fever, cough, chills, abdominal pain, vomiting, diarrhea, palpitations, chills. He has no tenderness up into his calf. Related Data Home Medications Medication Instructions Recorded Confirmed hydrochlorothiazide 12.5 mg capsule 12.5 mg PO QDAY #0 07/26/17 10/25/21 losartan 50 mg tablet 50 mg PO QDAY #0 07/26/17 10/25/21 atorvastatin 20 mg tablet 20 mg PO DAILY 12/27/20 10/25/21 Previous Rx's Medication Instructions Recorded celecoxib 200 mg capsule (Celebrex) 200 mg PO DAILY #30 cap 10/13/21 cephalexin 500 mg capsule 500 mg PO TID #21 cap 11/10/21 Allergies Allergy/AdvReac Type Severity Reaction Status Date / Time morphine [MORPHINE] Allergy Unknown Verified 11/10/21 19:14 Review of Systems Review of Systems Narrative: Remainder of complete review of systems is otherwise unremarkable except for that included in the HPI. 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), thoracic Facet arthropathy, cervical Facet arthropathy, lumbar GERD (gastroesophageal reflux disease) Pericarditis Subacromial impingement of left shoulder Surgical History History of Jared fundoplication Family History Father Heart attack Mother Cancer Social History Smoking Status: Never smoker Smoking Status: Never smoker alcohol intake frequency: holidays/special occasions only Alcohol type: beer Substance Use Type: does not use Exam Initial Vital Signs Initial Vital Signs: Vital Signs Temperature 98.3 F 11/10/21 19:08 Pulse Rate 61 11/10/21 19:08 Respiratory Rate 15 11/10/21 19:08 Blood Pressure 174/84 H 11/10/21 19:08 Pulse Oximetry 98 11/10/21 19:08 General: Alert appropriate in no acute distress Respiratory: Able to speak in full sentences, no obvious respiratory distress Skin: No obvious rashes, warm and dry Neurologic: Grossly intact no obvious asymmetries or abnormalities Extremity: Right ankle and foot have healing hematoma consistent with his injury is reported 10 days ago. There is a 2 by for cm area of blistering over the dorsum of the foot and surrounding and spreading from that is a 5 x 7 cm area of erythema consistent with cellulitis. He has no lymphangitic spread. He has full range of motion at the toes through the midfoot and the ankle. No concerns proximal to the ankle. He is neurovascularly intact Psych: appropriate insight and affect, cooperative Course Orders Ordered: ED Orders 11/10/21 19:15 Wound Culture and Gram Stain Stat 11/10/21 19:18 XR foot RT min 3V Stat 11/10/21 19:30 Complete Blood Count AUTO DIFF Stat Comprehensive Metabolic Panel Stat Discontinued Medications Ceftriaxone Sodium 2,000 mg/ (Sodium Chloride) 100 mls @ 200 mls/hr IV NOW ONE Stop: 11/10/21 19:36 Last Infusion: 11/10/21 20:10 Dose: 0 mls/hr Documented by: Admin: 11/10/21 19:40 Dose: 200 mls/hr Documented by: DEXTER Vital Signs Vital signs: Vital Signs - 8 hr 11/10/21 19:08 Temperature 98.3 F Pulse Rate 61 Respiratory Rate 15 Blood Pressure 174/84 H Pulse Oximetry 98 Medical Decision Making Lab Data Result diagrams: 11/10/21 19:30 11/10/21 19:30 Labs: Lab Results 11/10/21 11/10/21 Range/Units 19:30 19:30 WBC 7.7 (4.5-11.0) X10^3/uL RBC 4.99 (4.5-5.9) X10^6/uL Hgb 15.9 (13.5-17.5) g/dL Hct 44.5 (41-53) % MCV 89.2 (80-100) fL MCH 31.9 (26-34) PG MCHC 35.8 (30-36) % RDW 13.3 (11.6-14.8) % Plt Count 205 (150-400) X10^3/uL Neut % (Auto) 67.0 (50-75) % Lymph % (Auto) 22.0 L (25-40) % [place] % (Auto) 7.9 (3-14) % Eos % (Auto) 2.1 (2-4) % Baso % (Auto) 1.0 (0-2) % Neut # (Auto) 5200 (1162-8685) /uL Lymph # (Auto) 1700 (9023-3366) /uL [place] # (Auto) 600 (0-900) /uL Eos # (Auto) 200 (0-450) /uL Baso # (Auto) 100 (0-100) /uL Sodium 138 (137-145) mmol/L Potassium 3.6 (3.4-5.1) mmol/L Chloride 103 (98-107) mmol/L Carbon Dioxide 28 (22-32) mmol/L BUN 22 H (9-20) mg/dL Creatinine 1.04 (0.66-1.25) mg/dL Estimated GFR > 60.0 (>60) mL/min BUN/Creatinine Ratio 21.2 (6-22) Glucose 138 H (80-110) mg/dL Calcium 9.3 (8.4-10.2) mg/dL Total Bilirubin 0.8 (0.2-1.3) mg/dL AST 36 (17-59) IU/L ALT 45 (<50) IU/L Alkaline Phosphatase 92 (38-126) U/L Total Protein 7.1 (6.3-8.2) g/dL Albumin 4.4 (3.5-5.0) g/dL Globulin 2.7 (1.7-4.1) g/dL Albumin/Globulin Ratio 1.6 (1.0-2.8) MDM Narrative Medical decision making narrative: 66-year-old gentleman with blunt trauma to the foot 10 days ago after a log landed on his foot. Five days ago noticing what likely started as a blood blister that and became superinfected now is mild cellulitis over the dorsum of the foot without evidence of sepsis, lymphadenopathy lymphangitis or osteomyelitis. He was given 2 g of ceftriaxone in the emergency department and will have him complete 7 days of Keflex. Reviewed signs and symptoms of worsening infection and when to return to the emergency department. Questions were answered he is safe for home discharge Discharge Plan Departure Patient Disposition: Home Clinical Impression: Contusion of foot, right, Cellulitis Instructions: DI for Cellulitis -- Adult Activity Restrictions/Additional Instructions: Thank you for coming in today You do have a cellulitis developing over the top of your foot. I am very glad to return to the emergency room this evening. Your lab work was reassuring, there is no sign of overwhelming infection. Your x-ray does not show infection extending into the bone. You are given a dose of ceftriaxone, a powerful antibiotic, to get started with treating this infection. Please continue with Keflex 3 times a day for the next 7 days to fully treat this infection. You may find that it seems to heal faster if you are able to keep the foot elevated. A prescription for Keflex was electronically transmitted to [facility] for you to sheepskin pickler tomorrow Using 400 mg of ibuprofen (2 [id number]-rud-[id number] pills) and 1 Tylenol every 6 hours can be very helpful in controlling pain. If symptoms seem to be getting worse, there is redness spreading up across her ankle or red streaks going up her leg, you do need to be seen in the emergency room again. I hope you heal quickly and completely Prescriptions: New cephalexin 500 mg capsule 500 mg PO TID Qty: 21 0RF No Action losartan 50 MG tablet 50 mg PO QDAY Qty: 0 0RF hydrochlorothiazide 12.5 MG capsule 12.5 mg PO QDAY Qty: 0 0RF celecoxib [Celebrex] 200 mg capsule 200 mg PO DAILY Qty: 30 2RF atorvastatin 20 mg tablet 20 mg PO DAILY 0RF Referrals: Boni Lorenzo MD [Primary Care Provider] -
--- NOTE | 2021-11-10 19:18 | DI.RAD.S_ITS ---
PROCEDURE: XR FOOT RT MIN 3V INDICATIONS: trauma, superifection. conern for oseto TECHNIQUE: 3 views of the foot were acquired. COMPARISON: [facility], CR, XR FOOT RT MIN 3V, 10/31/2021, 17:59. FINDINGS: Bones: No fractures or dislocations. No suspicious bony lesions. No osseous erosive changes. No periosteal reaction. Soft tissues: No tibiotalar joint effusion. Achilles tendon appears normal. No soft tissue gas. IMPRESSION: No rojas evidence of osteomyelitis. Plain film radiographs can be insensitive to osteomyelitis during the initial 15 days of the disease process. If there is clinical concern for osteomyelitis, then three-phase nuclear medicine bone scan or MRI should be considered for further evaluation. Dictated by: Danica Duckworth MD, PhD on 11/10/2021 at 20:02 Approved by: Danica Duckworth MD, PhD on 11/10/2021 at 20:03
[2021-11-10 19:38] LABS: Add Manual Diff / Slide Review NO; Basophils Absolute Auto 100 /uL (0-100); Eosinophils Absolute Auto 200 /uL (0-450); Eosinophils Percent Auto 2.1 % (2-4); Hematocrit 44.5 % (41-53); Hemoglobin 15.9 g/dL (13.5-17.5); Lymphocytes Absolute Auto 1700 /uL (1100-4500); Mean Corpuscular HGB Conc 35.8 % (30-36); Mean Corpuscular Hemoglobin 31.9 PG (26-34); Mean Corpuscular Volume 89.2 fL (80-100); Monocytes Absolute Auto 600 /uL (0-900); Monocytes Percent Auto 7.9 % (3-14); Neutrophils Absolute Auto 5200 /uL (1500-7000); Platelet Count 205 X10^3/uL (150-400); Red Blood Cell Count 4.99 X10^6/uL (4.5-5.9); Red Cell Distribution Width 13.3 % (11.6-14.8); White Blood Cell Count 7.7 X10^3/uL (4.5-11.0)
[2021-11-10] MEDS: cefTRIAXone 2,000 MG in SODIUM CHLORIDE 0.9% 100 ML 200 ML IV (19:40)
[2021-11-10 19:55] LABS: Alanine Aminotransferase 45 IU/L (<50); Albumin 4.4 g/dL (3.5-5.0); Albumin Globulin Ratio 1.6 (1.0-2.8); Alkaline Phosphatase 92 U/L (38-126); Aspartate Aminotransferase 36 IU/L (17-59); BUN Creatinine Ratio 21.2 (6-22); Bilirubin Total 0.8 mg/dL (0.2-1.3); Blood Urea Nitrogen 22 mg/dL (9-20); Calcium 9.3 mg/dL (8.4-10.2); Carbon Dioxide 28 mmol/L (22-32); Chloride 103 mmol/L (98-107); Estimated Glomerular Filt Rate > 60.0 mL/min (>60); Globulin 2.7 g/dL (1.7-4.1); Glucose 138 mg/dL (80-110); HEMOLYSIS 21 (0-50); Potassium 3.6 mmol/L (3.4-5.1); Sodium 138 mmol/L (137-145); Total Protein 7.1 g/dL (6.3-8.2)
[2021-11-10 20:54] VITALS: BP 150/78; PULSE 61; O2SAT 97
== END 2021-11-10 20:55 | disposition home or self-care (01) ==
PROVIDERS: Emergency Provider Emergency Medicine; Family Provider Family Medicine; PCP Family Medicine
DX: S90.31XA Contusion of right foot, initial encounter (principal); L03.115 Cellulitis of right lower limb; W20.8XXA Other cause of strike by thrown, projected or falling object, initial encounter; Y93.89 Activity, other specified; Y92.219 Unspecified school as the place of occurrence of the external cause
CPT/HCPCS: 36415; 73630; 80053; 85025; 87070; 87075; 87077; 87147; 87186; 87205; 96365; 99284; J0696

== ENCOUNTER 2021-11-24 17:34 | Emergency (ER) | payer OTHER, SELFPAY ==
[2021-11-24 17:38] VITALS: BP 136/81; PULSE 64; RESP 16; TEMP 36.7; BMI 29.0
--- NOTE | 2021-11-24 18:42 | ED_ITS ---
HPI - Skin/Abscess/Foreign Bdy General Chief complaint: Skin/Abscess/Foreign Body Stated complaint: rt foot infection, not getting better Time Seen by Provider: 11/24/21 18:19 Source: patient Mode of arrival: Ambulatory History of Present Illness HPI narrative: 66-year-old gentleman with history of [facility] after a log that he had been cutting landed on the dorsum of his right foot. At that time he was having a moderate amount of pain, x-rays did not suggest any broken bones and he was discharged home. He returned on November 10 complaining that he developed a large bulla over the dorsum of his foot, it was becoming increasingly red and more tender after seemingly beginning to improve. He was given ceftriaxone, started on Keflex culture of the fluid under the bulla was sent to the lab. He notes that he initially improved and then received a phone call that he needed to switch antibiotics. Culture grew out scant Staph epidermidis that is sensitive to doxycycline. He has been on doxycycline now for the last 3 days but notes that his foot is again increasingly red over the dorsum increasingly tender. He has been able to wear shoe without discomfort last week and now can no longer have anything touching the surface of his foot and there was too much swelling to get a shoe on comfortably. He comes in for further evaluation. Does not report fevers or chills. He does not feel that he is systemically ill, no myalgias. No chest pain, orthopnea, dyspnea, abdominal pain, vomiting, diarrhea. Related Data Home Medications Medication Instructions Recorded Confirmed hydrochlorothiazide 12.5 mg capsule 12.5 mg PO QDAY #0 07/26/17 10/25/21 losartan 50 mg tablet 50 mg PO QDAY #0 07/26/17 10/25/21 atorvastatin 20 mg tablet 20 mg PO DAILY 12/27/20 10/25/21 Previous Rx's Medication Instructions Recorded celecoxib 200 mg capsule (Celebrex) 200 mg PO DAILY #30 cap 10/13/21 cephalexin 500 mg capsule 500 mg PO TID #21 cap 11/10/21 doxycycline hyclate 100 mg tablet 100 mg PO BID 7 Days #14 tab 11/20/21 cephalexin 500 mg capsule 500 mg PO TID #42 cap 11/24/21 doxycycline hyclate 100 mg capsule 100 mg PO BID #22 cap 11/24/21 Allergies Allergy/AdvReac Type Severity Reaction Status Date / Time morphine [MORPHINE] Allergy Unknown Verified 11/24/21 17:37 Review of Systems Review of Systems Narrative: Remainder of complete review of systems is otherwise unremarkable except for that included in the HPI. 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), thoracic Facet arthropathy, cervical Facet arthropathy, lumbar GERD (gastroesophageal reflux disease) Pericarditis Subacromial impingement of left shoulder Surgical History History of Jared fundoplication Family History Father Heart attack Mother Cancer Social History Smoking Status: Never smoker Smoking Status: Never smoker alcohol intake frequency: holidays/special occasions only Alcohol type: beer Substance Use Type: does not use Exam Initial Vital Signs Initial Vital Signs: Vital Signs Temperature 98.0 F 11/24/21 17:38 Pulse Rate 64 11/24/21 17:38 Respiratory Rate 16 11/24/21 17:38 Blood Pressure 136/81 11/24/21 17:38 General: Alert appropriate in no acute distress Respiratory: Able to speak in full sentences, no obvious respiratory distress Skin: No obvious rashes, warm and dry Neurologic: Grossly intact no obvious asymmetries or abnormalities Psych: appropriate insight and affect, cooperative Lower extremity: The dorsum of the right foot has 1 cm scab without any drainage but there is erythema extending from that area with a small bit of skin sloughing (2 x 3 cm) over the distal portion of the area. His ankle remains mildly swollen and tender but he notes it continues to improve after the strain that was diagnosed with the initial injury on October 31. He has no lymphangitic spread. There is no significant calf edema nor inguinal adenopathy on the right side. He is not tender on the plantar surface of the foot. There is a minor amount of swelling through the midfoot, there is no drainage with palpation, no obvious abscess and no subcutaneous air appreciated Course Orders Ordered: ED Orders 11/24/21 18:50 MR foot RT wo/w con Stat 11/24/21 18:52 Blood Culture Stat 11/24/21 19:05 Complete Blood Count AUTO DIFF Stat Comprehensive Metabolic Panel Stat Vital Signs Vital signs: Vital Signs - 8 hr 11/24/21 17:38 Temperature 98.0 F Pulse Rate 64 Respiratory Rate 16 Blood Pressure 136/81 MDM - Skin/Abscess/Foreign Bdy Lab Data Lab results narrative: Gram Stain Final 11/10/21-2220 No Organism Seen No organisms seen White blood cells Occasional WBC seen Epithelial cells Occasional (0-1) Aerobic Culture for wounds Final 11/16/21- 724 Organism 1 Staphylococcus epidermidis Growth SCANT 1. Staphylococcus epidermidis M.I.C. RX --------- --- * Daptomycin 0.5 S * Vancomycin <=0.5 S * Ciprofloxacin <=0.5 S * Clindamycin 0.25 S * Doxycycline <=0.5 S * Erythromycin <=0.25 S * Gentamicin <=0.5 S * Levofloxacin 0.25 S * Linezolid 2 S * Moxifloxacin <=0.25 S * Oxacillin Trae <=0.25 S * Rifampin <=0.5 S * Tetracycline <=1 S * Trimethoprim/Sulfamethoxazole <=10 S Anaerobic Culture Final 11/16/21- 0 <No reportable results for this procedure> Result diagrams: 11/24/21 19:05 11/24/21 19:05 Labs: Lab Results 11/24/21 11/24/21 Range/Units 19:05 19:05 WBC 5.3 (4.5-11.0) X10^3/uL RBC 4.89 (4.5-5.9) X10^6/uL Hgb 15.4 (13.5-17.5) g/dL Hct 43.4 (41-53) % MCV 88.7 (80-100) fL MCH 31.4 (26-34) PG MCHC 35.4 (30-36) % RDW 13.0 (11.6-14.8) % Plt Count 218 (150-400) X10^3/uL Neut % (Auto) 55.9 (50-75) % Lymph % (Auto) 29.5 (25-40) % [place] % (Auto) 10.6 (3-14) % Eos % (Auto) 3.5 (2-4) % Baso % (Auto) 0.5 (0-2) % Neut # (Auto) 3000 (0310-5541) /uL Lymph # (Auto) 1600 (3668-3206) /uL [place] # (Auto) 600 (0-900) /uL Eos # (Auto) 200 (0-450) /uL Baso # (Auto) 0 (0-100) /uL Sodium 138 (137-145) mmol/L Potassium 3.4 (3.4-5.1) mmol/L Chloride 103 (98-107) mmol/L Carbon Dioxide 27 (22-32) mmol/L BUN 21 H (9-20) mg/dL Creatinine 0.99 (0.66-1.25) mg/dL Estimated GFR > 60.0 (>60) mL/min BUN/Creatinine Ratio 21.2 (6-22) Glucose 155 H (80-110) mg/dL Calcium 9.1 (8.4-10.2) mg/dL Total Bilirubin 0.6 (0.2-1.3) mg/dL AST 34 (17-59) IU/L ALT 45 (<50) IU/L Alkaline Phosphatase 79 (38-126) U/L Total Protein 6.7 (6.3-8.2) g/dL Albumin 4.3 (3.5-5.0) g/dL Globulin 2.4 (1.7-4.1) g/dL Albumin/Globulin Ratio 1.8 (1.0-2.8) Imaging Data MRI foot: Radiologist's Impression: FINDINGS:? Image quality:? Excellent.? ? Bones and joints:? There is a small peripheral indistinct region of mild T2 hyperintensity and enhancement within the marrow of the medial 1st metatarsal head.? The findings are suggestive of a bone contusion a suspected small minimally displaced fracture.? A small region bone marrow edema is also demonstrated medially at the base the 1st proximal phalanx also suggestive of a bone contusion.? The sesamoid bones appear in expected positions, without internal edema.? There is mild 1st metatarsophalangeal joint degeneration.? No intraosseous mass lesions.? ? Soft tissues:? There is mild edema and enhancement in the subcutaneous soft tissues medial to the 1st metatarsal head as well as the abductor hallucis muscle distally.? There is a small overlying soft tissue ulcer.? No discrete loculated fluid collection to suggest an abscess or sinus tract.? The visualized plantar foot muscles demonstrate normal signal and bulk.? Visualized flexor and extensor tendons appear intact, without tenosynovitis.? The distal insertions of the peroneus brevis and longus tendons appear intact.? The principal Lisfranc ligament appears intact.? No soft tissue ganglion cysts or bursal fluid collections.? The plantar plate at the 1st metatarsophalangeal joint is attenuated distally suggestive of a sprain at its insertion.? There is subcutan eous edema dorsally within the midfoot. ? IMPRESSION:? ? 1. Small region of bone marrow edema medially in the 1st metatarsal head likely represents a bone contusion given its peripheral distribution.? There is a possible associated minimally displaced fracture medially.? The differential includes osteomyelitis although no discrete cortical erosions are identified as well as sequelae of an inflammatory arthropathy.? Recommend correlation with clinical history. ? 2. Small region of marrow edema at the base of the 1st proximal phalanx is also nonspecific but suggestive of a bone contusion. ? 3. Small soft tissue ulcer medial to the 1st metatarsal head with mild subjacent subcutaneous edema and enhancement is suggestive cellulitis and possible myositis of the distal abductor hallucis muscle.? No evidence of associated abscess collection or sinus tract.? ? Dictated by: Saroj Pires M.D. on 11/24/2021 at 20:57 ? ? [facility] Narrative Medical decision making narrative: 66-year-old gentleman with fairly significant blunt trauma injury to the foot on October 31, infection appreciated on the with initially ceftriaxone followed by Keflex. The culture down at that time showing scant Staph epidermidis I suspect is more contaminant than actual infection. I am concerned that after seeing improvement he is again having swelling, redness and tenderness and I am concerned that he is developing osteomyelitis. MRI of the foot is obtained today Foot MRI suggests cellulitis and possible myositis but no firm evidence for osteomyelitis. Will have him continue 14 days of both Keflex and doxycycline. He is given additional dose of ceftriaxone in the emergency department. Will provide him a copy of this note with all labs studies and summary of events to follow-up with his primary care physician in 7-10 days. I have asked him to return to the emergency department if symptoms are worsening. He again declines any pain medication. He is safe for home discharge Discharge Plan Departure Patient Disposition: Home Clinical Impression: Myositis Qualifiers: Myositis type: infective Myositis location: foot Laterality: right Qualified Code(s): M60.073 - Infective myositis, right foot Cellulitis Qualifiers: Site of cellulitis: extremity Site of cellulitis of extremity: lower extremity Laterality: right Qualified Code(s): L03.115 - Cellulitis of right lower limb Instructions: DI for Cellulitis -- Adult Activity Restrictions/Additional Instructions: Thank you for coming in today I am concerned that your foot cellulitis has not completely improved and that you are developing an infection in the small muscles between the bones of your foot. The MRI of your foot does not suggest that you have infection in the bone itself. I want you to complete 14 additional days of antibiotics, both doxycycline as well as Keflex. Prescriptions were electronically transmitted to [facility] Need to return to the emergency room if your noticing increasing pain, swelling, drainage Please share the note from today with all of the labs studies and summary with your primary care doctor when you follow-up with him in 7-10 days. You definitely need to see him before the end of your antibiotic course. I would recommend ibuprofen at night if the pain over your foot is keeping you from sleeping. I wish you the best Prescriptions: New doxycycline hyclate 100 mg capsule 100 mg PO BID Qty: 22 0RF cephalexin 500 mg capsule 500 mg PO TID Qty: 42 0RF No Action losartan 50 MG tablet 50 mg PO QDAY Qty: 0 0RF hydrochlorothiazide 12.5 MG capsule 12.5 mg PO QDAY Qty: 0 0RF celecoxib [Celebrex] 200 mg capsule 200 mg PO DAILY Qty: 30 2RF cephalexin 500 mg capsule 500 mg PO TID Qty: 21 0RF doxycycline hyclate 100 mg tablet 100 mg PO BID 7 Days Qty: 14 0RF atorvastatin 20 mg tablet 20 mg PO DAILY 0RF Referrals: Boni Lorenzo MD [Primary Care Provider] -
--- NOTE | 2021-11-24 18:50 | DI.MRI.S_ITS ---
PROCEDURE: MR FOOT RT WO/W CON INDICATIONS: recurrent wound after trauma, ? osteomeyelitis TECHNIQUE: Noncontrast sagittal T1 spin echo and T2 fast spin echo with fat saturation, long-axis T1 spin echo and T2 fast spin echo with fat saturation; short-axis T1 spin echo, proton density fast spin echo, and T2 fast spin echo with fat saturation through the forefoot. Post-contrast short axis, long axis, and sagittal T1 spin echo with fat saturation through the forefoot. COMPARISON: [facility], CR, XR FOOT RT MIN 3V, 11/10/2021, 19:40. FINDINGS: Image quality: Excellent. Bones and joints: There is a small peripheral indistinct region of mild T2 hyperintensity and enhancement within the marrow of the medial 1st metatarsal head. The findings are suggestive of a bone contusion a suspected small minimally displaced fracture. A small region bone marrow edema is also demonstrated medially at the base the 1st proximal phalanx also suggestive of a bone contusion. The sesamoid bones appear in expected positions, without internal edema. There is mild 1st metatarsophalangeal joint degeneration. No intraosseous mass lesions. Soft tissues: There is mild edema and enhancement in the subcutaneous soft tissues medial to the 1st metatarsal head as well as the abductor hallucis muscle distally. There is a small overlying soft tissue ulcer. No discrete loculated fluid collection to suggest an abscess or sinus tract. The visualized plantar foot muscles demonstrate normal signal and bulk. Visualized flexor and extensor tendons appear intact, without tenosynovitis. The distal insertions of the peroneus brevis and longus tendons appear intact. The principal Lisfranc ligament appears intact. No soft tissue ganglion cysts or bursal fluid collections. The plantar plate at the 1st metatarsophalangeal joint is attenuated distally suggestive of a sprain at its insertion. There is subcutaneous edema dorsally within the midfoot. IMPRESSION: 1. Small region of bone marrow edema medially in the 1st metatarsal head likely represents a bone contusion given its peripheral distribution. There is a possible associated minimally displaced fracture medially. The differential includes osteomyelitis although no discrete cortical erosions are identified as well as sequelae of an inflammatory arthropathy. Recommend correlation with clinical history. 2. Small region of marrow edema at the base of the 1st proximal phalanx is also nonspecific but suggestive of a bone contusion. 3. Small soft tissue ulcer medial to the 1st metatarsal head with mild subjacent subcutaneous edema and enhancement is suggestive cellulitis and possible myositis of the distal abductor hallucis muscle. No evidence of associated abscess collection or sinus tract. Dictated by: Saroj Pires M.D. on 11/24/2021 at 20:57 Approved by: Saroj Pires M.D. on 11/24/2021 at 21:20
[2021-11-24 19:15] LABS: Add Manual Diff / Slide Review NO; Basophils Absolute Auto 0 /uL (0-100); Basophils Percent Auto 0.5 % (0-2); Eosinophils Absolute Auto 200 /uL (0-450); Eosinophils Percent Auto 3.5 % (2-4); Hematocrit 43.4 % (41-53); Hemoglobin 15.4 g/dL (13.5-17.5); Lymphocytes Absolute Auto 1600 /uL (1100-4500); Lymphocytes Percent Auto 29.5 % (25-40); Mean Corpuscular HGB Conc 35.4 % (30-36); Mean Corpuscular Hemoglobin 31.4 PG (26-34); Mean Corpuscular Volume 88.7 fL (80-100); Monocytes Absolute Auto 600 /uL (0-900); Monocytes Percent Auto 10.6 % (3-14); Neutrophils Absolute Auto 3000 /uL (1500-7000); Neutrophils Percent Auto 55.9 % (50-75); Platelet Count 218 X10^3/uL (150-400); Red Blood Cell Count 4.89 X10^6/uL (4.5-5.9); White Blood Cell Count 5.3 X10^3/uL (4.5-11.0)
[2021-11-24 19:30] LABS: Alanine Aminotransferase 45 IU/L (<50); Albumin 4.3 g/dL (3.5-5.0); Albumin Globulin Ratio 1.8 (1.0-2.8); Alkaline Phosphatase 79 U/L (38-126); Aspartate Aminotransferase 34 IU/L (17-59); BUN Creatinine Ratio 21.2 (6-22); Bilirubin Total 0.6 mg/dL (0.2-1.3); Blood Urea Nitrogen 21 mg/dL (9-20); Calcium 9.1 mg/dL (8.4-10.2); Carbon Dioxide 27 mmol/L (22-32); Chloride 103 mmol/L (98-107); Estimated Glomerular Filt Rate > 60.0 mL/min (>60); Globulin 2.4 g/dL (1.7-4.1); Glucose 155 mg/dL (80-110); HEMOLYSIS < 15 (0-50); Potassium 3.4 mmol/L (3.4-5.1); Sodium 138 mmol/L (137-145); Total Protein 6.7 g/dL (6.3-8.2)
[2021-11-24] MEDS: cefTRIAXone 2,000 MG in SODIUM CHLORIDE 0.9% 100 ML 200 ML IV (21:59)
[2021-11-24 22:14] VITALS: BP 120/61; PULSE 51; O2SAT 95
== END 2021-11-24 22:40 | disposition home or self-care (01) ==
PROVIDERS: Emergency Provider Emergency Medicine; Family Provider Family Medicine; PCP Family Medicine
DX: M60.073 Infective myositis, right foot (principal); L03.115 Cellulitis of right lower limb
CPT/HCPCS: 36415; 73720; 80053; 85025; 87040; 96365; 99284; A9579; J0696

== ENCOUNTER → 2021-12-20 20:11 | Outpatient (CLI) | payer OTHER, SELFPAY ==
--- NOTE | 2021-12-20 20:18 | DI.RAD.S_ITS ---
PROCEDURE: XR SHOULDER LT MIN 2V INDICATIONS: left shoulder impingement TECHNIQUE: 3 views of the shoulder were acquired. COMPARISON: None. FINDINGS: Bones: No fractures or dislocations. No suspicious bony lesions. Visualized ribs appear intact. Humeral head is high-riding. Moderate acromioclavicular narrowing. Soft tissues: No suspicious soft tissue calcifications. IMPRESSION: High riding appearance of the humeral head, which can be indicative of rotator cuff pathology. Dictated by: Kaci Pink M.D. on 12/21/2021 at 14:59 Approved by: Kaci Pink M.D. on 12/21/2021 at 14:59
== END ==
PROVIDERS: Family Provider Family Medicine; PCP Family Medicine; Referring Provider Physical Medicine & Rehabilitation; Visit Provider Physical Medicine & Rehabilitation
DX: M75.42 Impingement syndrome of left shoulder (principal)
CPT/HCPCS: 73030

== ENCOUNTER → 2022-01-24 08:31 | Outpatient (CLI) | payer OTHER, SELFPAY | PROVIDERS: Family Provider Family Medicine; PCP Family Medicine; Referring Provider Family Medicine; Visit Provider Family Medicine | DX: S91.301A Unspecified open wound, right foot, initial encounter (principal); L08.9 Local infection of the skin and subcutaneous tissue, unspecified | CPT/HCPCS: 11042; 99204; 99213 ==

== ENCOUNTER → 2022-01-31 09:41 | Outpatient (CLI) | payer OTHER, SELFPAY | PROVIDERS: Family Provider Family Medicine; PCP Family Medicine; Referring Provider Family Medicine; Visit Provider Family Medicine | DX: S91.301A Unspecified open wound, right foot, initial encounter (principal) | CPT/HCPCS: 11042 ==

== ENCOUNTER → 2022-02-04 11:33 | Outpatient (CLI) | payer OTHER, SELFPAY ==
--- NOTE | 2022-02-04 11:34 | DI.MRI.S_ITS ---
PROCEDURE: MR SHOULDER LT WO CON INDICATIONS: RUPTURE OF PECTORALIS MAJOR MUSCLE TECHNIQUE: Noncontrast oblique coronal T2 fast spin echo with fat saturation, oblique sagittal T1 spin echo and T2 fast spin echo with fat saturation, axial T1 spin echo and T2 fast spin echo with fat saturation through the shoulder. COMPARISON: [facility], CR, XR SHOULDER LT MIN 2V, 12/20/2021, 20:31. FINDINGS: Image quality: Excellent. Rotator cuff: The supraspinatus, infraspinatus, and subscapularis tendons appear intact. Mild supraspinatus, infraspinatus and subscapularis tendinosis. Sagittal images demonstrate no rotator cuff muscle atrophy. There is subtle edema in the anterior belly of the deltoid muscle. Bones and bursae: No bone marrow contusions or fractures. No acromioclavicular joint degeneration. The acromion demonstrates conventional anatomy, without an os acromiale. No pathologic subacromial-subdeltoid or subcoracoid bursal fluid is present. Capsule and soft tissues: Labrum appears intact. The long head of the biceps tendon demonstrates normal location and morphology. The rotator interval appears normal, without fibrosis. The coracohumeral ligament is normal in thickness. IMPRESSION: 1. Mild tendinosis of the supraspinatus, infraspinatus and subscapularis tendons. 2. Moderate acromioclavicular joint degeneration. 3. Mild deltoid muscle strain. Dictated by: Jhonathan Bernal M.D. on 02/06/2022 at 8:15 Approved by: Jhonathan Bernal M.D. on 02/06/2022 at 10:20
== END ==
PROVIDERS: Family Provider Family Medicine; PCP Family Medicine; Referring Provider Orthopaedic Surgery; Visit Provider Orthopaedic Surgery
DX: S29.011A Strain of muscle and tendon of front wall of thorax, initial encounter (principal); S46.812A Strain of other muscles, fascia and tendons at shoulder and upper arm level, left arm, initial encounter; M19.012 Primary osteoarthritis, left shoulder
CPT/HCPCS: 73221

== ENCOUNTER → 2022-02-07 14:40 | Outpatient (CLI) | payer OTHER, SELFPAY | PROVIDERS: Family Provider Family Medicine; PCP Family Medicine; Referring Provider Family Medicine; Visit Provider Family Medicine | DX: Z09 Encounter for follow-up examination after completed treatment for conditions other than malignant neoplasm (principal); Z87.828 Personal history of other (healed) physical injury and trauma | CPT/HCPCS: 99212; 99213 ==

== ENCOUNTER 2022-08-17 04:44 | Emergency (ER) | payer OTHER, SELFPAY ==
--- NOTE | 2022-08-17 04:51 | DI.RAD.S_ITS ---
PROCEDURE: XR LUMBAR SPINE 2-3V INDICATIONS: lumbar spine pain after fall TECHNIQUE: 3 views of the lumbar spine were acquired. COMPARISON: [facility], RG, XR L-SPINE 2-3V, 09/22/2019, 7:13. MR, MR LUMBAR SPINE WO CON, 01/08/2021, 8:52. CR, XR THORACIC SPINE 3V, 12/27/2020, 13:07. [facility], RG, XR L-SPINE 2-3V, 12/03/2020, 8:35. FINDINGS: Bones: 5 xkg-[id number]-[id number] vertebrae are present. There is mild levocurvature; otherwise normal bony alignment. There is moderate compression fracture of L2, unchanged in severity since 09/22/2019. No new fractures. No suspicious bony lesions. Mild degenerative disc and facet disease noted in lumbar spine. Soft tissues: Overlying bowel gas pattern is normal. No suspicious soft tissue calcifications. IMPRESSION: 1. Moderate compression fracture of L2, stable since 09/22/2019. 2. No acute fractures. 3. Mild degenerative disc and facet disease. No significant discrepancy with the night court magistrate radiology preliminary report. Dictated by: Jhonathan Bernal M.D. on 08/17/2022 at 8:36 Approved by: Jhonathan Bernal M.D. on 08/17/2022 at 8:44
[2022-08-17 04:52] VITALS: BP 175/79; PULSE 54; RESP 18; TEMP 36.4; O2SAT 95
--- NOTE | 2022-08-17 05:52 | ED_ITS ---
HPI - Back Pain/Injury General Chief Complaint: Back Pain/Injury Stated Complaint: fell yesterday back pain and fells broken Time Seen by Provider: 08/17/22 04:49 Source: patient Mode of arrival: Ambulatory History of Present Illness HPI Narrative: 67-year-old male who fell yesterday landing on his right elbow in his lower back. He has injured his lower back in the past. This happened just over 12 hours ago. He was standing on a piece of wood putting in a new light fixture in his shop when he fell off the piece of wood. He did not hit his head. His right elbow is actually somewhat improved. He is had continued discomfort in hi s lower back given his prior fracture he would like it to be evaluated. Related Data Home Medications Medication Instructions Recorded Confirmed hydrochlorothiazide 12.5 mg capsule 12.5 mg PO QDAY ##0 07/26/17 12/21/21 losartan 50 mg tablet 50 mg PO QDAY ##0 07/26/17 12/21/21 atorvastatin 20 mg tablet 20 mg PO DAILY 12/27/20 12/21/21 Previous Rx's Medication Instructions Recorded cephalexin 500 mg capsule 500 mg PO TID #42 caps 11/24/21 doxycycline hyclate 100 mg capsule 100 mg PO BID #22 caps 11/24/21 celecoxib 200 mg capsule (Celebrex) 200 mg PO DAILY #30 caps 07/13/22 Allergies Allergy/AdvReac Type Severity Reaction Status Date / Time morphine [MORPHINE] Allergy Unknown Verified 12/21/21 15:17 Review of Systems Constitutional Constitutional: Reports system reviewed and no additional complaints, except as documented Musculoskeletal Musculoskeletal: Reports system reviewed and no additional complaints, except as documented Integumentary/Breasts Skin/Breast: Reports system reviewed and no additional complaints, except as documented Neurologic Neurologic: Reports system reviewed and no additional complaints, except as documented 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), thoracic Facet arthropathy, cervical Facet arthropathy, lumbar GERD (gastroesophageal reflux disease) Pericarditis Rotator cuff tear Subacromial impingement of left shoulder Surgical History History of Jared fundoplication Family History Father Heart attack Mother Cancer Social History Smoking Status: Never smoker Smoking Status: Never smoker alcohol intake frequency: holidays/special occasions only Alcohol type: beer Substance Use Type: does not use Exam Initial Vital Signs Initial Vital Signs: Vital Signs Temperature 97.6 F 08/17/22 04:52 Pulse Rate 54 L 08/17/22 04:52 Respiratory Rate 18 08/17/22 04:52 Blood Pressure 175/79 H 08/17/22 04:52 Pulse Oximetry 95 08/17/22 04:52 Oxygen Delivery Method 08/17/22 04:52 HENMT Head: normal to inspection Back/Spine/Pelvis Thoracic/Lumbar Spine: paraspinal tenderness (Left-sided lumbar paraspinal), No thoracic spinal tenderness and lumbar spinal tenderness Skin General: no rashes or lesions noted Neuro General: patient alert, patient awake and moves all extremities Extrem General: capillary refill normal Course Orders Ordered: ED Orders 08/17/22 04:51 XR lumbar spine 2-3V Stat Discontinued Medications Cyclobenzaprine HCl (Cyclobenzaprine 10 Mg Prepack) 1 bottle MISC SEEINSTR ONE Stop: 08/17/22 05:52 Vital Signs Vital signs: Vital Signs - 8 hr 08/17/22 04:52 Temperature 97.6 F Pulse Rate 54 L Respiratory Rate 18 Blood Pressure 175/79 H Pulse Oximetry 95 Oxygen Delivery Method Room Air MDM - Back Pain/Injury Imaging Data Lumbar spinal x-rays: Radiologist's Impression: Age-indeterminate superior endplate compression fracture of L2 MDM Narrative Medical decision making narrative: Patient is unsure exactly what lumbar vertebra he is injured in the past but he thinks it maybe in the upper vertebral region. The x-ray today shows a L2 compression fracture which is age indeterminate. He is tender over this area. He also has left-sided paraspinal tenderness. No other neurologic symptoms. Patient states that he does not want any opioid pain medication as he does not like the way that it makes him feel. He was okay with muscle relaxers. Hold on further workup for now. Was given return precautions. He expressed understanding and agreement. Discharge Plan Departure Patient Disposition: Home Clinical Impression: Compression fracture of L2 Instructions: DI for Vertebral Fracture Activity Restrictions/Additional Instructions: Like we discussed there is a age indeterminate compression fracture of the 2nd lumbar vertebrae. This is in a location where you are having tenderness on your lower back. I recommend that you take Tylenol and/or ibuprofen for any discomfort. Your activities only limited by your discomfort. You can use the muscle relaxers as needed. Return to the emergency department for any new symptoms. Prescriptions: No Action losartan 50 MG tablet 50 mg PO QDAY Qty: 0 hydrochlorothiazide 12.5 MG capsule 12.5 mg PO QDAY Qty: 0 celecoxib [Celebrex] 200 mg capsule 200 mg PO DAILY Qty: 30 2RF doxycycline hyclate 100 mg capsule 100 mg PO BID Qty: 22 0RF cephalexin 500 mg capsule 500 mg PO TID Qty: 42 0RF atorvastatin 20 mg tablet 20 mg PO DAILY Referrals: Boni Lorenzo MD [Primary Care Provider] -
[2022-08-17] MEDS: CYCLOBENZAPRINE 10 MG PREPACK 1 BOTTLE MISC (05:59)
[2022-08-17 06:04] VITALS: BP 128/75; PULSE 52; RESP 16; TEMP 36.4; O2SAT 98
== END 2022-08-17 06:05 | disposition home or self-care (01) ==
PROVIDERS: Emergency Provider Emergency Medicine; Family Provider Family Medicine; PCP Family Medicine
DX: S32.029A Unspecified fracture of second lumbar vertebra, initial encounter for closed fracture (principal); W18.00XA Striking against unspecified object with subsequent fall, initial encounter
CPT/HCPCS: 72100; 99281; 99283

== ENCOUNTER 2024-02-18 02:47 | Emergency (ER) | payer OTHER, SELFPAY ==
[2024-02-18 03:07] VITALS: BP 195/85; PULSE 45; RESP 19; TEMP 36.6; O2SAT 98; BMI 29.2
--- NOTE | 2024-02-18 03:15 | DI.CT.S_ITS ---
PROCEDURE: CT ABDOMEN PELVIS W CON INDICATIONS: ABD DISTENSION/RIGIDITY, NO BM X 1 WK TECHNIQUE: After the administration of intravenous contrast, axial sections acquired from the lung bases to the pubic symphysis. Coronal and sagittal reformats were performed. For radiation dose reduction, the following was used: automated exposure control, adjustment of mA and/or kV according to patient size. COMPARISON: [facility], CR, XR LUMBAR SPINE 2-3V, 08/17/2022, 5:10. FINDINGS: Image quality: Diagnostic. Lower Chest: Lung bases are clear. There is a moderate-sized hiatal hernia. ABDOMEN: Liver: No solid mass. Normal size. Moderate hepatic steatosis. Gallbladder: No radiopaque gallstones or wall thickening. Biliary ducts: No biliary dilation. Pancreas: No ductal dilation. Spleen: Size is within normal limits. Adrenal Glands: No adrenal nodules. Kidneys and Ureters: No hydronephrosis. No solid mass. Parapelvic left renal cysts are present. Small exophytic cortical knee right renal cyst. No complex renal cystic lesion which requires follow up. Stomach and Bowel: Normal small bowel and colonic caliber, without significant wall thickening. Mild diverticulosis. No acute diverticulitis. Peritoneum: No abnormal intraperitoneal fluid. No free air. Ventral Wall: No significant ventral hernia. Abdominal Nodes: No retroperitoneal or mesenteric adenopathy by size criteria. Vessels: Aorta and inferior vena cava are normal in size. PELVIS: Pelvic Organs: Unremarkable. Bladder: No bladder wall thickening, accounting for underdistention. Pelvic Nodes: No enlarged lymph nodes. Miscellaneous: No inguinal hernias are seen. Bones: Chronic moderate compression fracture of L2 IMPRESSION: 1. No acute abnormalities abdomen or pelvis. 2. Moderate hepatic steatosis. 3. A moderate-sized hiatal hernia. 4. Moderate chronic L2 compression fracture. No significant discrepancy with the night clerk auditor radiology preliminary report. Dictated by: Jhonathan Bernal M.D. on 02/18/2024 at 8:16 Approved by: Jhonathan Bernal M.D. on 02/18/2024 at 8:22
--- NOTE | 2024-02-18 03:16 | ED_ITS ---
HPI - Abdominal Pain General Chief Complaint: Abdominal Pain Stated Complaint: no bowel movement, back pain Time Seen by Provider: 02/18/24 02:49 Source: patient Mode of arrival: Ambulatory History of Present Illness HPI narrative: 68-year-old male with history of hypertension, prediabetes, history of Díaz's esophagus status post Jared fundoplication surgery approximately 5 years ago at [facility] presents for approximately 1 week of lumbar back pain and worsening abdominal pain and distention. Patient states that 6 days ago he had a slip and fall, landing on his back. He was seen at [facility] and [place] where a CT scan showed he had no fractures. Patient was discharged home with pain medications, however patient states that he hallucinates with narcotic pain medications and he was not taken any since his discharge from the hospital. Patient states that since his discharge from the hospital he was not had a bowel movement. He has tried Colace and MiraLax, but all it has done is given him stomach cramping. Says that the last time he passed gas was 2-3 days ago. He gets occasional dry heaves, but due to his Jared fundoplication he can not vomit. Related Data Home Medications Medication Instructions Recorded Confirmed hydrochlorothiazide 12.5 mg capsule 12.5 mg PO QDAY ##0 07/26/17 12/21/21 losartan 50 mg tablet 50 mg PO QDAY ##0 07/26/17 12/21/21 atorvastatin 20 mg tablet 20 mg PO DAILY 12/27/20 12/21/21 Previous Rx's Medication Instructions Recorded cephalexin 500 mg capsule 500 mg PO TID #42 caps 11/24/21 doxycycline hyclate 100 mg capsule 100 mg PO BID #22 caps 11/24/21 celecoxib 200 mg capsule 200 mg PO DAILY #90 caps 10/10/23 cyclobenzaprine 10 mg tablet 10 mg PO TID PRN muscle spasm #30 02/18/24 tabs methylprednisolone 4 mg tablets in See Rx Instructions PO .COMPLEX 02/18/24 a dose pack (Medrol (Eusebio)) #21 ea Allergies Allergy/AdvReac Type Severity Reaction Status Date / Time morphine [MORPHINE] Allergy Unknown Verified 12/21/21 15:17 Patient History Medical History Rotator cuff tear Subacromial impingement of left shoulder Degenerative joint disease (DJD) of hip Facet arthropathy, lumbar Facet arthropathy, cervical Cervical radiculopathy DJD (degenerative joint disease), thoracic Compression fracture of L2 Chest pain Pericarditis GERD (gastroesophageal reflux disease) Surgical History History of Jared fundoplication Family History Father Heart attack Mother Cancer Social History Smoking Status: Never smoker Smoking Status: Never smoker alcohol intake frequency: holidays/special occasions only Alcohol type: beer Substance Use Type: does not use Exam Initial Vital Signs Initial Vital Signs: Vital Signs Temperature 97.8 F 02/18/24 03:07 Pulse Rate 45 L 02/18/24 03:07 Respiratory Rate 19 02/18/24 03:07 Blood Pressure 195/85 H 02/18/24 03:07 Pulse Oximetry 98 02/18/24 03:07 Oxygen Delivery Method Room Air 02/18/24 03:07 Const: Awake, alert, uncomfortable, in pain Cardiac: bradicardie, regular rhythm RESP: unlabored, clear bilaterally, no wheezing GI: Distended, diffusely tender to light palpation MSK back: No midline tenderness, tenderness to firm palpation R paraspinal region Skin: Warm, Dry, intact, minimal bruising R CVA region Neuro: AO x3, CN II-XII grossly intact, moves all extremities Course Orders Ordered: ED Orders 02/18/24 03:05 CBC Auto Diff [Complete Blood Count AUTO DIFF] Stat 02/18/24 03:15 CT abdomen pelvis w con Stat 02/18/24 03:25 CMP [Comprehensive Metabolic Panel] Stat Lactate (Lactic Acid) Stat Lipase Stat PT [Prothrombin Time INR] Stat Discontinued Medications Cyclobenzaprine HCl (Cyclobenzaprine 10 Mg Tablet) 10 mg PO NOW ONE Stop: 02/18/24 03:41 Last Admin: 02/18/24 03:45 Dose: 10 mg Sodium Chloride (Normal Saline 0.9%) 1,000 mls @ 1,000 mls/hr IV BOLUS ONE Stop: 02/18/24 04:14 Last Infusion: 02/18/24 05:02 Dose: Infused Acetaminophen (Ofirmev) 1,000 mg in 100 mls @ 400 mls/hr IV NOW ONE Stop: 02/18/24 03:29 Last Infusion: 02/18/24 04:18 Dose: Infused Polyethylene Glycol/Electrolytes ([id number]/Sod Sulf,Bicarb,Cl/Kcl 4,000 Ml Solution) 4,000 ml PO NOW ONE Stop: 02/18/24 04:49 Last Admin: 02/18/24 05:02 Dose: 4,000 ml Vital Signs Vital signs: Vital Signs - 8 hr 02/18/24 03:07 Temperature 97.8 F Pulse Rate 45 L Respiratory Rate 19 Blood Pressure 195/85 H Pulse Oximetry 98 Oxygen Delivery Method Room Air MDM - Abdominal Pain Lab Data 02/18/24 03:25 02/18/24 03:25 Labs: Lab Results 02/18/24 Range/Units 03:25 WBC 8.2 (4.5-11.0) X10^3/uL RBC 5.27 (4.5-5.9) X10^6/uL Hgb 16.6 (13.5-17.5) g/dL Hct 47.2 (41-53) % MCV 89.5 (80-100) fL MCH 31.4 (26-34) PG MCHC 35.1 (30-36) % RDW 13.8 (11.6-14.8) % Plt Count 195 (150-400) X10^3/uL Neut % (Auto) 70.0 (50-75) % Lymph % (Auto) 17.9 L (25-40) % [place]atte % (Auto) 8.1 (3-14) % Eos % (Auto) 3.0 (2-4) % Baso % (Auto) 1.0 (0-2) % Neut # (Auto) 5700 (6906-3615) /uL Lymph # (Auto) 1500 (4780-1096) /uL [place]atte # (Auto) 700 (0-900) /uL Eos # (Auto) 200 (0-450) /uL Baso # (Auto) 100 (0-100) /uL PT 11.7 (9.4-12.5) SECONDS INR 1.0 (0.9-1.3) Sodium 137 (137-145) mmol/L Potassium 4.0 (3.4-5.1) mmol/L Chloride 107 (98-107) mmol/L Carbon Dioxide 26 (22-32) mmol/L BUN 18 (9-20) mg/dL Creatinine 1.07 (0.66-1.25) mg/dL Estimated GFR > 60 (>60) mL/min BUN/Creatinine Ratio 16.8 (6-22) Glucose 118 H (80-110) mg/dL Lactate 1.3 (0.7-2.1) mmol/L Calcium 9.3 (8.4-10.2) mg/dL Total Bilirubin 1.1 (0.2-1.3) mg/dL AST 30 (17-59) IU/L ALT 37 (<50) IU/L Alkaline Phosphatase 79 (38-126) U/L Total Protein 7.2 (6.3-8.2) g/dL Albumin 4.4 (3.5-5.0) g/dL Globulin 2.8 (1.7-4.1) g/dL Albumin/Globulin Ratio 1.6 (1.0-2.8) Lipase 68 (23-300) U/L MDM Narrative Medical decision making narrative: Uncomfortable appearing gentleman with 1 week of symptoms. When I walked into the room he has been over the bed on his knees and appears to be in quite some discomfort. Abdomen is distended and diffusely tender to even light palpation. Due to patient's amount of discomfort as well as distended abdomen and almost peritonitic exam a CT abd/pel with contrast was ordered with instructions to defer laboratory testing prior to scanning. Laboratory work and CT imaging do not show any acute abnormalities despite the reported severity of patient's symptoms. There was no evidence of obstruction, free air, other acute findings. Received records from [facility], where [address] underwent [address] brain, C-spine, chest, abdomen, pelvis imaging that was also reported to be negative for acute findings. Laboratory work at that time also normal. Patient discharged with Latta, Toradol, and Zofran. Patient states that he has not taken any of the narcotic pain medication since he has been discharged so he should have this on hand at home if he needs it, however he does state that he hallucinates with narcotic pain medications and prefers to not take them. Patient given steroids and muscle relaxers for his back pain. Given a gal of GoLYTELY to produce bowel movement at home. Discharge Plan Departure Patient Disposition: Home Clinical Impression: Lumbar back pain, Abdominal pain Instructions: DI for Abdominal Pain-Adult Activity Restrictions/Additional Instructions: Your laboratory work and CT imaging today did not show any abnormalities to explain your symptoms. We compared these scans to the results from [place] and they are unchanged today. Your laboratory work is also normal. Continue to take Tylenol and ibuprofen, in addition steroids and muscle relaxers have been sent to your pharmacy. Follow up with your primary care doctor. Use the given GoLYTELY to produce a bowel movement. Sip this throughout the day and you will have a bowel movement. Prescriptions: New methylprednisolone [Medrol (Eusebio)] 4 mg tablets,dose pack See Rx Instructions .ROUTE .COMPLEX Qty: 21 0RF Rx Instructions: orally per package directions cyclobenzaprine 10 mg tablet 10 mg PO TID PRN (Reason: muscle spasm) Qty: 30 0RF No Action losartan 50 MG tablet 50 mg PO QDAY Qty: 0 hydrochlorothiazide 12.5 MG capsule 12.5 mg PO QDAY Qty: 0 celecoxib 200 mg capsule 200 mg PO DAILY Qty: 90 2RF doxycycline hyclate 100 mg capsule 100 mg PO BID Qty: 22 0RF cephalexin 500 mg capsule 500 mg PO TID Qty: 42 0RF atorvastatin 20 mg tablet 20 mg PO DAILY Referrals: Boni Lorenzo MD [Primary Care Provider] - Stand Alone Forms: Patient Portal/API
[2024-02-18 03:36] LABS: Add Manual Diff / Slide Review NO; Basophils Absolute Auto 100 /uL (0-100); Eosinophils Absolute Auto 200 /uL (0-450); Hematocrit 47.2 % (41-53); Hemoglobin 16.6 g/dL (13.5-17.5); Lymphocytes Absolute Auto 1500 /uL (1100-4500); Lymphocytes Percent Auto 17.9 % (25-40); Mean Corpuscular HGB Conc 35.1 % (30-36); Mean Corpuscular Hemoglobin 31.4 PG (26-34); Mean Corpuscular Volume 89.5 fL (80-100); Monocytes Absolute Auto 700 /uL (0-900); Monocytes Percent Auto 8.1 % (3-14); Neutrophils Absolute Auto 5700 /uL (1500-7000); Platelet Count 195 X10^3/uL (150-400); Red Blood Cell Count 5.27 X10^6/uL (4.5-5.9); Red Cell Distribution Width 13.8 % (11.6-14.8); White Blood Cell Count 8.2 X10^3/uL (4.5-11.0)
[2024-02-18 03:41] LABS: Prothrombin Time 11.7 SECONDS (9.4-12.5)
[2024-02-18 03:45] LABS: Lactate (Lactic Acid) 1.3 mmol/L (0.7-2.1); Lipase 68 U/L (23-300)
[2024-02-18] MEDS: ACETAMINOPHEN IV 1,000 MG/100 ML VIAL 400 MG IV (03:45)
[2024-02-18] MEDS: CYCLOBENZAPRINE 10 MG TABLET PO (03:45)
[2024-02-18 03:46] LABS: Alanine Aminotransferase 37 IU/L (<50); Albumin 4.4 g/dL (3.5-5.0); Albumin Globulin Ratio 1.6 (1.0-2.8); Alkaline Phosphatase 79 U/L (38-126); Aspartate Aminotransferase 30 IU/L (17-59); BUN Creatinine Ratio 16.8 (6-22); Bilirubin Total 1.1 mg/dL (0.2-1.3); Blood Urea Nitrogen 18 mg/dL (9-20); Calcium 9.3 mg/dL (8.4-10.2); Carbon Dioxide 26 mmol/L (22-32); Chloride 107 mmol/L (98-107); Estimated Glomerular Filt Rate > 60 mL/min (>60); Globulin 2.8 g/dL (1.7-4.1); Glucose 118 mg/dL (80-110); HEMOLYSIS < 15 (0-50); Sodium 137 mmol/L (137-145); Total Protein 7.2 g/dL (6.3-8.2)
[2024-02-18] MEDS: SODIUM CHLORIDE 0.9% 1,000 ML 1000 ML IV (03:46)
[2024-02-18] MEDS: PEG3350/SOD SULF,BICARB,CL/KCL 4,000 ML SOLUTION 4000 ML PO (05:02)
[2024-02-18 05:10] VITALS: BP 182/83; PULSE 43; RESP 16; O2SAT 98
== END 2024-02-18 05:13 | disposition home or self-care (01) ==
PROVIDERS: Emergency Provider Emergency Medicine; Family Provider Family Medicine; PCP Family Medicine
DX: M54.50 Low back pain, unspecified (principal); R10.9 Unspecified abdominal pain
CPT/HCPCS: 36415; 74177; 80053; 83605; 83690; 85025; 85610; 96365; 99284; J0136; Q9967

== ENCOUNTER 2024-02-24 04:05 | Emergency (ER) | payer OTHER, SELFPAY ==
[2024-02-24 04:21] VITALS: BP 192/99; PULSE 52; RESP 18; TEMP 36.6; O2SAT 97; BMI 29.2
--- NOTE | 2024-02-24 04:24 | ED_ITS ---
HPI - Abdominal Pain <Josue Espinoza MD - Last Filed: 02/24/24 15:33> General Chief Complaint: Abdominal Pain Stated Complaint: no bm t-5 Time Seen by Provider: 02/24/24 04:06 History of Present Illness HPI narrative: 68-year-old male had a fall injury or proximally 2 weeks ago, was treated with pain medications, then subsequently developed abdominal pain, felt to have constipation, was given GoLYTELY, felt too nauseated to take more than 2 glasses, increasing abdominal pain predominantly right-sided, no bowel movement for the last few days. No fevers or chills. No new injuries. No black or red stools. Related Data Home Medications Medication Instructions Recorded Confirmed hydrochlorothiazide 12.5 mg capsule 12.5 mg PO QDAY ##0 07/26/17 12/21/21 losartan 50 mg tablet 50 mg PO QDAY ##0 07/26/17 12/21/21 atorvastatin 20 mg tablet 20 mg PO DAILY 12/27/20 12/21/21 Previous Rx's Medication Instructions Recorded cephalexin 500 mg capsule 500 mg PO TID #42 caps 11/24/21 doxycycline hyclate 100 mg capsule 100 mg PO BID #22 caps 11/24/21 celecoxib 200 mg capsule 200 mg PO DAILY #90 caps 10/10/23 cyclobenzaprine 10 mg tablet 10 mg PO TID PRN muscle spasm #30 02/18/24 tabs methylprednisolone 4 mg tablets in See Rx Instructions PO .COMPLEX 02/18/24 a dose pack (Medrol (Eusebio)) #21 ea Allergies Allergy/AdvReac Type Severity Reaction Status Date / Time morphine [MORPHINE] Allergy Unknown Verified 12/21/21 15:17 Review of Systems <Josue Espinoza MD - Last Filed: 02/24/24 15:33> Review of Systems Narrative: per HPI Patient History <Josue Espinoza MD - Last Filed: 02/24/24 15:33> Medical History Rotator cuff tear Subacromial impingement of left shoulder Degenerative joint disease (DJD) of hip Facet arthropathy, lumbar Facet arthropathy, cervical Cervical radiculopathy DJD (degenerative joint disease), thoracic Compression fracture of L2 Chest pain Pericarditis GERD (gastroesophageal reflux disease) Surgical History History of Jared fundoplication Family History Father Heart attack Mother Cancer Social History Smoking Status: Never smoker Smoking Status: Never smoker alcohol intake frequency: holidays/special occasions only Alcohol type: beer Substance Use Type: does not use Exam <Josue Espinoza MD - Last Filed: 02/24/24 15:33> Narrative Exam Narrative: GENERAL: Well-developed patient, in mild distress. HEAD: Atraumatic. Normocephalic. EYES: Pupils equal round and reactive. Extraocular motions intact. No scleral icterus. No injection or drainage. ENT: Nose without bleeding, purulent drainage. Throat without erythema, tonsillar hypertrophy or exudate. Airway patent. NECK: Trachea midline. Non tender CARDIOVASCULAR: Regular rate and rhythm without murmurs, gallops, or rubs. RESPIRATORY: Clear to auscultation. Breath sounds equal bilaterally. No wheezes, rales, or rhonchi. GASTROINTESTINAL: Abdomen soft, non-tender, nondistended. EXTREMITIES: No edema or joint tenderness. BACK: Nontender without deformity or crepitance. No flank tenderness. NEURO: AOx3. SKIN: No rash or erythema of visible areas Initial Vital Signs Initial Vital Signs: Vital Signs Temperature 97.8 F 02/24/24 04:21 Pulse Rate 52 L 02/24/24 04:21 Respiratory Rate 18 02/24/24 04:21 Blood Pressure 192/99 H 02/24/24 04:21 Pulse Oximetry 97 02/24/24 04:21 Oxygen Delivery Method Room Air 02/24/24 04:21 <Nettie Callahan DO - Last Filed: 02/24/24 18:32> Initial Vital Signs Initial Vital Signs: Vital Signs Temperature 97.8 F 02/24/24 04:21 Pulse Rate 52 L 02/24/24 04:21 Respiratory Rate 18 02/24/24 04:21 Blood Pressure 192/99 H 02/24/24 04:21 Pulse Oximetry 97 02/24/24 04:21 Oxygen Delivery Method Room Air 02/24/24 04:21 Course <Josue Espinoza MD - Last Filed: 02/24/24 15:33> Orders Ordered: ED Orders 02/24/24 09:35 CT abdomen pelvis w con Stat Discontinued Medications Sodium Chloride (Normal Saline 0.9%) 1,000 mls @ 1,000 mls/hr IV BOLUS ONE Stop: 02/24/24 09:56 Last Infusion: 02/24/24 10:55 Dose: Infused Documented By: Admin: 02/24/24 09:04 Dose: 1,000 mls/hr Documented By: ANTHONY Acetaminophen (Ofirmev) 1,000 mg in 100 mls @ 400 mls/hr IV NOW ONE Stop: 02/24/24 09:49 Last Infusion: 02/24/24 10:13 Dose: Infused Documented By: Admin: 02/24/24 09:54 Dose: 400 mls/hr Documented By: NIECY Ketorolac Tromethamine (Ketorolac 30 Mg/Ml Vial) 15 mg IV NOW ONE Stop: 02/24/24 08:58 Last Admin: 02/24/24 09:04 Dose: 15 mg Documented By: ANTHONY Lactulose (Lactulose 20 Gm/30 Ml Solution) 20 gm PO NOW ONE Stop: 02/24/24 05:06 Last Admin: 02/24/24 05:29 Dose: 20 gm Documented By: MINA Magnesium Citrate (Magnesium Citrate 300 Ml Solution) 300 ml PO NOW ONE Stop: 02/24/24 10:48 Last Admin: 02/24/24 10:55 Dose: 300 ml Documented By: AURORA Mineral Oil (Mineral Oil 1 Each Enema) 1 each VA NOW ONE Stop: 02/24/24 06:36 Last Admin: 02/24/24 07:07 Dose: 1 each Documented By: MINA Sodium Biphosphate/Sodium Phosphate (Fleets Enema) 1 each VA NOW ONE Stop: 02/24/24 05:07 Last Admin: 02/24/24 05:29 Dose: 1 each Documented By: MINA Vital Signs Vital signs: Vital Signs - 8 hr 02/24/24 10:50 Pulse Rate 51 L Respiratory Rate 15 Blood Pressure 182/99 H Pulse Oximetry 97 Oxygen Delivery Method Room Air <Nettie Callahan DO - Last Filed: 02/24/24 18:32> Orders Ordered: ED Orders 02/24/24 09:35 CT abdomen pelvis w con Stat Discontinued Medications Sodium Chloride (Normal Saline 0.9%) 1,000 mls @ 1,000 mls/hr IV BOLUS ONE Stop: 02/24/24 09:56 Last Infusion: 02/24/24 10:55 Dose: Infused Documented By: Admin: 02/24/24 09:04 Dose: 1,000 mls/hr Documented By: ANTHONY Acetaminophen (Ofirmev) 1,000 mg in 100 mls @ 400 mls/hr IV NOW ONE Stop: 02/24/24 09:49 Last Infusion: 02/24/24 10:13 Dose: Infused Documented By: Admin: 02/24/24 09:54 Dose: 400 mls/hr Documented By: NIECY Ketorolac Tromethamine (Ketorolac 30 Mg/Ml Vial) 15 mg IV NOW ONE Stop: 02/24/24 08:58 Last Admin: 02/24/24 09:04 Dose: 15 mg Documented By: ANTHONY Lactulose (Lactulose 20 Gm/30 Ml Solution) 20 gm PO NOW ONE Stop: 02/24/24 05:06 Last Admin: 02/24/24 05:29 Dose: 20 gm Documented By: MINA Magnesium Citrate (Magnesium Citrate 300 Ml Solution) 300 ml PO NOW ONE Stop: 02/24/24 10:48 Last Admin: 02/24/24 10:55 Dose: 300 ml Documented By: AURORA Mineral Oil (Mineral Oil 1 Each Enema) 1 each VA NOW ONE Stop: 02/24/24 06:36 Last Admin: 02/24/24 07:07 Dose: 1 each Documented By: MINA Sodium Biphosphate/Sodium Phosphate (Fleets Enema) 1 each VA NOW ONE Stop: 02/24/24 05:07 Last Admin: 02/24/24 05:29 Dose: 1 each Documented By: MINA Vital Signs Vital signs: Vital Signs - 8 hr 02/24/24 10:50 Pulse Rate 51 L Respiratory Rate 15 Blood Pressure 182/99 H Pulse Oximetry 97 Oxygen Delivery Method Room Air MDM - Abdominal Pain <Josue Espinoza MD - Last Filed: 02/24/24 15:33> Lab Data Attestation: I reviewed the patient's lab results. Lab results narrative: Unremarkable CBC, electrolytes unremarkable, serum CO2/gap normal, glucose normal. LFTs normal, lipase normal 02/24/24 04:30 02/24/24 04:30 Labs: Lab Results 02/24/24 Range/Units 04:30 WBC 9.9 (4.5-11.0) X10^3/uL RBC 5.63 (4.5-5.9) X10^6/uL Hgb 17.5 (13.5-17.5) g/dL Hct 49.0 (41-53) % MCV 87.2 (80-100) fL MCH 31.2 (26-34) PG MCHC 35.8 (30-36) % RDW 13.7 (11.6-14.8) % Plt Count 233 (150-400) X10^3/uL Neut % (Auto) 75.0 (50-75) % Lymph % (Auto) 15.3 L (25-40) % [place] % (Auto) 7.6 (3-14) % Eos % (Auto) 1.6 L (2-4) % Baso % (Auto) 0.5 (0-2) % Neut # (Auto) 7400 H (1947-8257) /uL Lymph # (Auto) 1500 (4045-8817) /uL [place] # (Auto) 800 (0-900) /uL Eos # (Auto) 200 (0-450) /uL Baso # (Auto) 0 (0-100) /uL Sodium 135 L (137-145) mmol/L Potassium 3.6 (3.4-5.1) mmol/L Chloride 102 (98-107) mmol/L Carbon Dioxide 26 (22-32) mmol/L BUN 23 H (9-20) mg/dL Creatinine 1.02 (0.66-1.25) mg/dL Estimated GFR > 60 (>60) mL/min BUN/Creatinine Ratio 22.5 H (6-22) Glucose 111 H (80-110) mg/dL Calcium 9.3 (8.4-10.2) mg/dL Total Bilirubin 1.4 H (0.2-1.3) mg/dL AST 28 (17-59) IU/L ALT 38 (<50) IU/L Alkaline Phosphatase 98 (38-126) U/L Total Protein 7.0 (6.3-8.2) g/dL Albumin 4.4 (3.5-5.0) g/dL Globulin 2.6 (1.7-4.1) g/dL Albumin/Globulin Ratio 1.7 (1.0-2.8) Lipase 59 (23-300) U/L Imaging Data Abdominal x-ray: My Impression: Colonic stool noted, no free air, no dilated loops, no air-fluid levels Radiologist's Impression: ?Nonobstructive bowel gas pattern. Mild to moderate stool in the proximal colon, and mild to moderate gas in portions of the transverse and descending colon. MDM Narrative Medical decision making narrative: 68-year-old male with recent diagnosis constipation, was not able to tolerate GoLYTELY, still having abdominal pain, no bowel movement last few days. Afebrile, sirs screen negative, mild diffuse tenderness, nondistended. Screening labs sent. We will hold off on CT imaging for now. Single-view x-ray for stool burden and bowel gas pattern assessment. Abdominal x-ray single view shows colonic stool, nonobstructive. P.o. lactulose. VA fleets enema Small response to Fleets enema, still symptomatic, we will try VA mineral oil enema. Assess response to enema and oral lactulose dose, we will hold CT imaging for now, signed out to Dr Callahan 02/24/2024 Dr. Callahan: Patient signed out to myself, patient presents with complaint of constipation, did have a fall about 2 weeks ago and has been taking narcotic pain medication which he stopped but has continued to have difficulty with bowel movement. Had received GoLYTELY but had minimal intake as it made him feel nauseated. Patient has a history of hypertension, prediabetes, Díaz's esophagus in his fundoplication 5 years ago. Patient's labs reviewed, x-ray imaging which does show some stool but more on the right side. Patient also had a CT on the which showed no acute changes. Moderate chronic L2 compression fracture. Patient has had lactulose, enema x2. Patient had minimal output with 1st enema on the 2nd enema. On exam patient had minimal output he is tender on the right side upper and lower. He states more since the enemas. We will give a dose of Toradol, fluids re-evaluation patient is sliver lap tender we will obtain CT abdomen pelvis if he is feeling improved and feels comfortable with discharge home with oral regimen. Patient was still quite uncomfortable on recheck is quite tender right upper and lower quadrants. Suspect it is probably constipation but after discussion with patient will Re imaged with CT. CT shows large stool burden but no other acute change. Discussed with patient we will adjust oral regimen, will have him continue with nonnarcotic pain medication and increase fluids and medications from top down to help with bowel movements. <Nettie Callahan, DO - Last Filed: 02/24/24 18:32> Lab Data Labs: Lab Results 02/24/24 Range/Units 04:30 WBC 9.9 (4.5-11.0) X10^3/uL RBC 5.63 (4.5-5.9) X10^6/uL Hgb 17.5 (13.5-17.5) g/dL Hct 49.0 (41-53) % MCV 87.2 (80-100) fL MCH 31.2 (26-34) PG MCHC 35.8 (30-36) % RDW 13.7 (11.6-14.8) % Plt Count 233 (150-400) X10^3/uL Neut % (Auto) 75.0 (50-75) % Lymph % (Auto) 15.3 L (25-40) % [place] % (Auto) 7.6 (3-14) % Eos % (Auto) 1.6 L (2-4) % Baso % (Auto) 0.5 (0-2) % Neut # (Auto) 7400 H (8766-4388) /uL Lymph # (Auto) 1500 (0397-1935) /uL [place] # (Auto) 800 (0-900) /uL Eos # (Auto) 200 (0-450) /uL Baso # (Auto) 0 (0-100) /uL Sodium 135 L (137-145) mmol/L Potassium 3.6 (3.4-5.1) mmol/L Chloride 102 (98-107) mmol/L Carbon Dioxide 26 (22-32) mmol/L BUN 23 H (9-20) mg/dL Creatinine 1.02 (0.66-1.25) mg/dL Estimated GFR > 60 (>60) mL/min BUN/Creatinine Ratio 22.5 H (6-22) Glucose 111 H (80-110) mg/dL Calcium 9.3 (8.4-10.2) mg/dL Total Bilirubin 1.4 H (0.2-1.3) mg/dL AST 28 (17-59) IU/L ALT 38 (<50) IU/L Alkaline Phosphatase 98 (38-126) U/L Total Protein 7.0 (6.3-8.2) g/dL Albumin 4.4 (3.5-5.0) g/dL Globulin 2.6 (1.7-4.1) g/dL Albumin/Globulin Ratio 1.7 (1.0-2.8) Lipase 59 (23-300) U/L Imaging Data CT scan - abdomen/pelvis: Radiologist's Impression: Close Abdomen/Pelvis CT (Signed) [facility] - 02/24/24 Abdomen X-Ray (Signed) [facility] - 02/24/24 Launch?Image [address] [address] [address] Scan Report Signed Patient: Bob Doran MR#: [id number] : 1955 Acct:[id number] Age/Sex: 68 / M Date of Service: 02/24/24 Loc: ED Accession Number: [id number] Procedure: CT abdomen pelvis w con Ordering Provider: Nettie Callahan D.O. PROCEDURE: CT ABDOMEN PELVIS W CON INDICATIONS: RUQ/RLQ pain/tender, constipation, n w/ food TECHNIQUE: After the administration of intravenous contrast, axial sections acquired from the lung bases to the pubic symphysis. Coronal and sagittal reformats were performed. For radiation dose reduction, the following was used: automated exposure control, adjustment of mA and/or kV according to patient size. COMPARISON: [facility], CT, CT ABDOMEN PELVIS W CON, 02/18/2024, 3:32. FINDINGS: Image quality: Diagnostic. Lower Chest: Lung bases are clear. Moderate hiatal hernia. ABDOMEN: Liver: No solid mass. Hepatic steatosis. Gallbladder: No radiopaque gallstones or wall thickening. Biliary ducts: No biliary dilation. Pancreas: No ductal dilation. Spleen: Size is within normal limits. Adrenal Glands: No adrenal nodules. Kidneys and Ureters: No hydronephrosis. No solid mass. No complex renal cystic lesion which requires follow up. Stomach and Bowel: Normal colonic caliber, without significant wall thickening. Large stool burden. Mild diverticulosis without evidence of acute diverticulitis. Normal appendix. Peritoneum: No abnormal intraperitoneal fluid. No free air. Ventral Wall: No significant ventral hernia. Abdominal Nodes: No retroperitoneal or mesenteric adenopathy by size criteria. Vessels: Aorta and inferior vena cava are normal in size. Atherosclerotic vascular calcifications. PELVIS: Pelvic Organs: Unremarkable. Bladder: No bladder wall thickening, accounting for underdistention. Pelvic Nodes: No enlarged lymph nodes. Miscellaneous: No inguinal hernias are seen. Bones: No aggressive osseous abnormality. Stable moderate L2 compression deformity. Degenerative changes of the spine. IMPRESSION: 1. Large burden of stool throughout the colon, correlate for constipation. 2. Otherwise, no acute findings within the abdomen or pelvis. 3. Moderate hiatal hernia. 4. Diverticulosis without evidence of acute diverticulitis. Dictated by: Nilton Galo M.D. on 02/24/2024 at 9:05 Approved by: Nilton Galo M.D. on 02/24/2024 at 9:09 MDM Narrative Medical decision making narrative: 68-year-old male with recent diagnosis constipation, was not able to tolerate GoLYTELY, having abdominal pain, no bowel movement last few days. Afebrile, sirs screen negative, mild diffuse tenderness, nondistended. Screening labs sent. We will hold off on CT imaging for now. Single-view x-ray for stool burden and bowel gas pattern assessment. Abdominal x-ray single view shows colonic stool. P.o. lactulose. VA fleets enema Small response to Fleets enema, still symptomatic, we will try VA mineral oil enema. Assess response to enema and oral lactulose dose, we will hold CT imaging for now, signed out to Dr Callahan 02/24/2024 Dr. Callahan: Patient signed out to myself, patient presents with complaint of constipation, did have a fall about 2 weeks ago and has been taking narcotic pain medication which he stopped but has continued to have difficulty with bowel movement. Had received GoLYTELY but had minimal intake as it made him feel nauseated. Patient has a history of hypertension, prediabetes, Díaz's esophagus in his fundoplication 5 years ago. Patient's labs reviewed, x-ray imaging which does show some stool but more on the right side. Patient also had a CT on the which showed no acute changes. Moderate chronic L2 compression fracture. Patient has had lactulose, enema x2. Patient had minimal output with 1st enema on the 2nd enema. On exam patient had minimal output he is tender on the right side upper and lower. He states more since the enemas. We will give a dose of Toradol, fluids re-evaluation patient is sliver lap tender we will obtain CT abdomen pelvis if he is feeling improved and feels comfortable with discharge home with oral regimen. Patient was still quite uncomfortable on recheck is quite tender right upper and lower quadrants. Suspect it is probably constipation but after discussion with patient will Re imaged with CT. CT shows large stool burden but no other acute change. Discussed with patient we will adjust oral regimen, will have him continue with nonnarcotic pain medication and increase fluids and medications from top down to help with bowel movements. Discharge Plan Departure Patient Disposition: Home Clinical Impression: Constipation Activity Restrictions/Additional Instructions: Your imaging shows quite a bit of stool throughout the colon, no signs of infection or inflammation today. You do have a stable L2 compression deformity in your lumbar spine. And a hiatal hernia noted. I would recommend taking Colace twice daily, you can add MiraLax to this as well. You need to make sure drinking plenty of fluids to stay hydrated. You can take magnesium citrate 1/2 bottle wait 4-5 hours and take the 2nd half of the bottle if you have not had a bowel movement I would also recommend foods such as watermelon or cherries or foods that are high fiber with high water content to help you have a bowel movement. Ambulation and walking can also be helpful to stimulate bowel movements. You can take Tylenol up to a 1000 mg every 6 hours as needed for pain and/or ibuprofen up to 800 mg every 8 hours. Please return for fevers, rapidly worsening pain, vomiting, if you are not having any bowel movements and not passing any gas or guarding or other new or concerning changes. Prescriptions: No Action losartan 50 MG tablet 50 mg PO QDAY Qty: 0 hydrochlorothiazide 12.5 MG capsule 12.5 mg PO QDAY Qty: 0 celecoxib 200 mg capsule 200 mg PO DAILY Qty: 90 2RF doxycycline hyclate 100 mg capsule 100 mg PO BID Qty: 22 0RF cephalexin 500 mg capsule 500 mg PO TID Qty: 42 0RF methylprednisolone [Medrol (Eusebio)] 4 mg tablets,dose pack See Rx Instructions .ROUTE .COMPLEX Qty: 21 0RF Rx Instructions: orally per package directions cyclobenzaprine 10 mg tablet 10 mg PO TID PRN (Reason: muscle spasm) Qty: 30 0RF atorvastatin 20 mg tablet 20 mg PO DAILY Referrals: Boni Lorenzo MD [Primary Care Provider] - Stand Alone Forms: Patient Portal/API
--- NOTE | 2024-02-24 04:28 | DI.RAD.S_ITS ---
PROCEDURE: XR ABDOMEN 1V INDICATIONS: abd pain, recent dx constipation TECHNIQUE: One view of the abdomen acquired. COMPARISON: [facility], CT, CT ABDOMEN PELVIS W CON, 02/18/2024, 3:32. FINDINGS: Surgical changes and devices: None. Bowel: Bowel gas pattern is normal. Moderate stool burden. Soft tissues: No suspicious abdominal calcifications. Visualized solid organ contours appear normal in size. Bones: No suspicious bony lesions. L2 compression deformity is redemonstrated. IMPRESSION: Nonobstructive bowel gas pattern. Moderate stool burden. Findings are concordant with preliminary interpretation provided by [facility]. Dictated by: Nilton Galo M.D. on 02/24/2024 at 8:10 Approved by: Nilton Galo M.D. on 02/24/2024 at 8:11
[2024-02-24 04:55] LABS: Add Manual Diff / Slide Review NO; Basophils Absolute Auto 0 /uL (0-100); Basophils Percent Auto 0.5 % (0-2); Eosinophils Absolute Auto 200 /uL (0-450); Eosinophils Percent Auto 1.6 % (2-4); Hemoglobin 17.5 g/dL (13.5-17.5); Lymphocytes Absolute Auto 1500 /uL (1100-4500); Lymphocytes Percent Auto 15.3 % (25-40); Mean Corpuscular HGB Conc 35.8 % (30-36); Mean Corpuscular Hemoglobin 31.2 PG (26-34); Mean Corpuscular Volume 87.2 fL (80-100); Monocytes Absolute Auto 800 /uL (0-900); Monocytes Percent Auto 7.6 % (3-14); Neutrophils Absolute Auto 7400 /uL (1500-7000); Platelet Count 233 X10^3/uL (150-400); Red Blood Cell Count 5.63 X10^6/uL (4.5-5.9); Red Cell Distribution Width 13.7 % (11.6-14.8); White Blood Cell Count 9.9 X10^3/uL (4.5-11.0)
[2024-02-24 05:09] LABS: Alanine Aminotransferase 38 IU/L (<50); Albumin 4.4 g/dL (3.5-5.0); Albumin Globulin Ratio 1.7 (1.0-2.8); Alkaline Phosphatase 98 U/L (38-126); Aspartate Aminotransferase 28 IU/L (17-59); BUN Creatinine Ratio 22.5 (6-22); Bilirubin Total 1.4 mg/dL (0.2-1.3); Blood Urea Nitrogen 23 mg/dL (9-20); Calcium 9.3 mg/dL (8.4-10.2); Carbon Dioxide 26 mmol/L (22-32); Chloride 102 mmol/L (98-107); Estimated Glomerular Filt Rate > 60 mL/min (>60); Globulin 2.6 g/dL (1.7-4.1); Glucose 111 mg/dL (80-110); HEMOLYSIS < 15 (0-50); Lipase 59 U/L (23-300); Potassium 3.6 mmol/L (3.4-5.1); Sodium 135 mmol/L (137-145)
[2024-02-24] MEDS: LACTULOSE 20 GM/30 ML SOLUTION PO (05:29)
[2024-02-24] MEDS: FLEETS ENEMA 1 EACH PR (05:29)
[2024-02-24] MEDS: MINERAL OIL 1 EACH ENEMA PR (07:07)
[2024-02-24] MEDS: KETOROLAC 30 MG/ML VIAL 15 MG IV (09:04)
[2024-02-24] MEDS: SODIUM CHLORIDE 0.9% 1,000 ML 1000 ML IV (09:04)
[2024-02-24 09:19] VITALS: BP 195/93; PULSE 46; RESP 19; O2SAT 95
--- NOTE | 2024-02-24 09:35 | DI.CT.S_ITS ---
PROCEDURE: CT ABDOMEN PELVIS W CON INDICATIONS: RUQ/RLQ pain/tender, constipation, n w/ food TECHNIQUE: After the administration of intravenous contrast, axial sections acquired from the lung bases to the pubic symphysis. Coronal and sagittal reformats were performed. For radiation dose reduction, the following was used: automated exposure control, adjustment of mA and/or kV according to patient size. COMPARISON: [facility], CT, CT ABDOMEN PELVIS W CON, 02/18/2024, 3:32. FINDINGS: Image quality: Diagnostic. Lower Chest: Lung bases are clear. Moderate hiatal hernia. ABDOMEN: Liver: No solid mass. Hepatic steatosis. Gallbladder: No radiopaque gallstones or wall thickening. Biliary ducts: No biliary dilation. Pancreas: No ductal dilation. Spleen: Size is within normal limits. Adrenal Glands: No adrenal nodules. Kidneys and Ureters: No hydronephrosis. No solid mass. No complex renal cystic lesion which requires follow up. Stomach and Bowel: Normal colonic caliber, without significant wall thickening. Large stool burden. Mild diverticulosis without evidence of acute diverticulitis. Normal appendix. Peritoneum: No abnormal intraperitoneal fluid. No free air. Ventral Wall: No significant ventral hernia. Abdominal Nodes: No retroperitoneal or mesenteric adenopathy by size criteria. Vessels: Aorta and inferior vena cava are normal in size. Atherosclerotic vascular calcifications. PELVIS: Pelvic Organs: Unremarkable. Bladder: No bladder wall thickening, accounting for underdistention. Pelvic Nodes: No enlarged lymph nodes. Miscellaneous: No inguinal hernias are seen. Bones: No aggressive osseous abnormality. Stable moderate L2 compression deformity. Degenerative changes of the spine. IMPRESSION: 1. Large burden of stool throughout the colon, correlate for constipation. 2. Otherwise, no acute findings within the abdomen or pelvis. 3. Moderate hiatal hernia. 4. Diverticulosis without evidence of acute diverticulitis. Dictated by: Nilton Galo M.D. on 02/24/2024 at 9:05 Approved by: Nilton Galo M.D. on 02/24/2024 at 9:09
--- NOTE | 2024-02-24 09:36 | PC.NURSE ---
Per Tamiko RN; pt insisted on performing self enemas. Pt currently endorses ongoing/worsening abdominal pain and tenderness; MD aware.
[2024-02-24] MEDS: ACETAMINOPHEN IV 1,000 MG/100 ML VIAL 400 MG IV (09:54)
[2024-02-24 10:50] VITALS: BP 182/99; PULSE 51; RESP 15; O2SAT 97
[2024-02-24] MEDS: MAGNESIUM CITRATE 300 ML SOLUTION PO (10:55)
== END 2024-02-24 11:01 | disposition home or self-care (01) ==
PROVIDERS: Emergency Medicine; Emergency Provider Emergency Medicine; Family Provider Family Medicine; PCP Family Medicine
DX: K59.03 Drug induced constipation (principal)
CPT/HCPCS: 36415; 74018; 74177; 80053; 83690; 85025; 96365; 96375; 99284; J0136; J1885; Q9967

== ENCOUNTER → 2024-03-10 14:31 | Outpatient (CLI) | payer OTHER, SELFPAY ==
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
== END ==
PROVIDERS: Family Provider Family Medicine; PCP Family Medicine; Referring Provider Physical Medicine & Rehabilitation; Visit Provider Physical Medicine & Rehabilitation
DX: M47.816 Spondylosis without myelopathy or radiculopathy, lumbar region (principal); M47.817 Spondylosis without myelopathy or radiculopathy, lumbosacral region; M43.8X6 Other specified deforming dorsopathies, lumbar region; M54.14 Radiculopathy, thoracic region; M47.22 Other spondylosis with radiculopathy, cervical region; S32.020A Wedge compression fracture of second lumbar vertebra, initial encounter for closed fracture; S46.012D Strain of muscle(s) and tendon(s) of the rotator cuff of left shoulder, subsequent encounter; M75.42 Impingement syndrome of left shoulder; M16.52 Unilateral post-traumatic osteoarthritis, left hip; M54.9 Dorsalgia, unspecified
CPT/HCPCS: 72110; 99214

== ENCOUNTER 2024-08-11 19:05 | Emergency (ER) | payer OTHER, SELFPAY ==
[2024-08-11 19:12] VITALS: BP 162/94; PULSE 50; RESP 16; TEMP 36.1; O2SAT 97; BMI 29.4
--- NOTE | 2024-08-11 19:20 | DI.RAD.S_ITS ---
PROCEDURE: XR CHEST 1V INDICATIONS: chest pain TECHNIQUE: One view of the chest was acquired. COMPARISON: [facility], CR, XR CHEST 1V, 07/08/2019, 23:28. FINDINGS: Surgical changes and devices: None. Lungs and pleura: Lungs are clear. No pleural effusions or pneumothorax. Mediastinum: Mediastinal contours appear normal. Heart size is normal. Bones and chest wall: No suspicious bony lesions. Overlying soft tissues appear unremarkable. IMPRESSION: No acute cardiopulmonary abnormality is seen. Dictated by: Lamonte Welsh M.D. on 08/11/2024 at 20:09 Approved by: Lamonte Welsh M.D. on 08/11/2024 at 20:10
--- NOTE | 2024-08-11 19:24 | EKG_ITS ---
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
[2024-08-11 19:36] LABS: Add Manual Diff / Slide Review NO; Basophils Absolute Auto 100 /uL (0-100); Basophils Percent Auto 1.1 % (0-2); Eosinophils Absolute Auto 100 /uL (0-450); Eosinophils Percent Auto 2.6 % (2-4); Hematocrit 45.6 % (41-53); Hemoglobin 15.8 g/dL (13.5-17.5); Lymphocytes Absolute Auto 1400 /uL (1100-4500); Lymphocytes Percent Auto 25.9 % (25-40); Mean Corpuscular HGB Conc 34.7 % (30-36); Mean Corpuscular Volume 89.4 fL (80-100); Monocytes Absolute Auto 600 /uL (0-900); Monocytes Percent Auto 10.5 % (3-14); Neutrophils Absolute Auto 3200 /uL (1500-7000); Neutrophils Percent Auto 59.9 % (50-75); Platelet Count 180 X10^3/uL (150-400); Red Cell Distribution Width 13.2 % (11.6-14.8); White Blood Cell Count 5.4 X10^3/uL (4.5-11.0)
[2024-08-11 19:42] LABS: Prothrombin Time 11.3 SECONDS (9.4-12.5)
[2024-08-11 19:44] LABS: PTT Partial Thromboplastin Tim 34 SECONDS (25.1-36.5)
[2024-08-11 19:50] LABS: Alanine Aminotransferase 46 IU/L (<50); Albumin 4.2 g/dL (3.5-5.0); Albumin Globulin Ratio 1.7 (1.0-2.8); Alkaline Phosphatase 93 U/L (38-126); Aspartate Aminotransferase 42 IU/L (17-59); BUN Creatinine Ratio 17.7 (6-22); Bilirubin Total 0.6 mg/dL (0.2-1.3); Blood Urea Nitrogen 22 mg/dL (9-20); Calcium 9.3 mg/dL (8.4-10.2); Carbon Dioxide 29 mmol/L (22-32); Chloride 103 mmol/L (98-107); Creatine Kinase 228 U/L (55-170); Estimated Glomerular Filt Rate > 60 mL/min (>60); Globulin 2.5 g/dL (1.7-4.1); Glucose 112 mg/dL (80-110); HEMOLYSIS < 15 (0-50); Lipase 76 U/L (23-300); Potassium 3.5 mmol/L (3.4-5.1); Sodium 136 mmol/L (137-145); Total Protein 6.7 g/dL (6.3-8.2)
[2024-08-11 20:01] LABS: NT-proBNP (BNP-Adult 18+) 34 pg/mL (<125)
[2024-08-11 20:02] LABS: Troponin I < 0.012 ng/mL (0.01-0.034)
[2024-08-11 20:56] VITALS: PULSE 47; O2SAT 97
[2024-08-11 20:57] VITALS: BP 164/90; PULSE 46; RESP 16; O2SAT 96
[2024-08-11 21:00] VITALS: BP 147/81; PULSE 47; RESP 16; O2SAT 95
[2024-08-11 21:30] VITALS: BP 141/74; PULSE 44; RESP 13; O2SAT 95
[2024-08-11 21:50] LABS: Creatine Kinase 216 U/L (55-170)
[2024-08-11 22:00] VITALS: BP 143/81; PULSE 47; RESP 14; O2SAT 96
[2024-08-11 22:03] LABS: Troponin I < 0.012 ng/mL (0.01-0.034)
--- NOTE | 2024-08-11 22:24 | ED_ITS ---
HPI - Chest Pain General Chief Complaint: Chest Pain Stated Complaint: chest px t-3 Time Seen by Provider: 08/11/24 21:01 Source: patient Mode of arrival: Ambulatory Limitations: no limitations History of Present Illness HPI narrative: Patient is a 69-year-old male. For the past 3 days patient states he was had chest discomfort. Describes it in the center of his chest. Is somewhat of a sharp pain. It has been persistent for the past 3 days but there have been times that has been worse than others. No coughing. No shortness of breath. Not worse with palpation and movement. He does state that it is somewhat worse with exertion. At the time of my evaluation he reports that the pain is somewhat it is minimal. He was never had anything like this in the past. Does have high cholesterol. Also has a history of hypertension. No lower extremity swelling. No abdominal pain or nausea or vomiting. Related Data Home Medications Medication Instructions Recorded Confirmed losartan 50 mg tablet 50 mg PO QDAY ##0 07/26/17 03/10/24 atorvastatin 20 mg tablet 20 mg PO DAILY 12/27/20 03/10/24 hydrochlorothiazide 12.5 mg tablet 12.5 mg PO DAILY 03/10/24 03/10/24 Previous Rx's Medication Instructions Recorded cephalexin 500 mg capsule 500 mg PO TID #42 caps 11/24/21 doxycycline hyclate 100 mg capsule 100 mg PO BID #22 caps 11/24/21 celecoxib 200 mg capsule 200 mg PO DAILY #90 caps 10/10/23 cyclobenzaprine 10 mg tablet 10 mg PO TID PRN muscle spasm #30 02/18/24 tabs methylprednisolone 4 mg tablets in See Rx Instructions PO .COMPLEX 02/18/24 a dose pack (Medrol (Eusebio)) #21 ea Allergies Allergy/AdvReac Type Severity Reaction Status Date / Time morphine [MORPHINE] AdvReac Unknown Rash Verified 08/11/24 19:12 Review of Systems Review of Systems ROS Unobtainable: All systems reviewed & are unremarkable except as noted in HPI and below Patient History Medical History Thoracic radiculopathy due to trauma Rotator cuff tear Subacromial impingement of left shoulder Degenerative joint disease (DJD) of hip Facet arthropathy, lumbar Facet arthropathy, cervical Cervical radiculopathy DJD (degenerative joint disease), thoracic Compression fracture of L2 Chest pain Pericarditis GERD (gastroesophageal reflux disease) Surgical History History of Jared fundoplication Family History Father Heart attack Mother Cancer Social History Smoking Status: Never smoker Smoking Status: Never smoker alcohol intake frequency: holidays/special occasions only Alcohol type: beer Exam Initial Vital Signs Initial Vital Signs: Vital Signs Temperature 97.0 F L 08/11/24 19:12 Pulse Rate 50 L 08/11/24 19:12 Respiratory Rate 16 08/11/24 19:12 Blood Pressure 162/94 H 08/11/24 19:12 Pulse Oximetry 97 08/11/24 19:12 Oxygen Delivery Method Room Air 08/11/24 19:12 Const General: cooperative, comfortable and No ill appearing HENMT Head: normal to inspection and normocephalic Resp Effort & Inspection: normal respiratory effort Auscultation: clear to auscultation bilaterally Cardio Rate: regular rate Rhythm: regular rhythm Skin General: no rashes or lesions noted Neuro General: patient alert, patient awake, patient oriented x3 and moves all extremities Extrem General: No edema Course Orders Ordered: ED Orders 08/11/24 19:20 XR chest 1V Stat Complete Blood Count AUTO DIFF Stat Comprehensive Metabolic Panel Stat Lipase Stat Magnesium Stat NT-proBNP (BNP-Adult 18+) Stat PTT Partial Thromboplastin Michael Stat Prothrombin Time INR Stat Troponin & CK Cardiac Panel Stat EKG-12 Lead Stat 08/11/24 21:19 Troponin & CK Cardiac Panel Stat Discontinued Medications Aspirin (Aspirin 81 Mg Chew Tab) 324 mg PO NOW ONE Stop: 08/11/24 19:21 Last Admin: 08/11/24 20:47 Dose: Not Given Documented By: Vital Signs Vital signs: Vital Signs - 8 hr 08/11/24 20:56 08/11/24 20:57 08/11/24 20:57 Pulse Rate 47 L 46 L Respiratory Rate 16 Blood Pressure 164/90 H Pulse Oximetry 97 96 Oxygen Delivery Method 08/11/24 21:00 08/11/24 21:00 08/11/24 21:30 Pulse Rate 47 L Respiratory Rate 16 Blood Pressure 147/81 H 141/74 H Pulse Oximetry 95 Oxygen Delivery Method 08/11/24 21:30 08/11/24 22:00 08/11/24 22:00 Pulse Rate 44 L 47 L Respiratory Rate 13 14 Blood Pressure 143/81 H Pulse Oximetry 95 96 Oxygen Delivery Method Room Air Room Air MDM - Chest Pain Lab Data Attestation: I reviewed the patient's lab results. 08/11/24 19:20 08/11/24 19:20 Labs: Lab Results 08/11/24 08/11/24 Range/Units 19:20 21:19 WBC 5.4 (4.5-11.0) X10^3/uL RBC 5.10 (4.5-5.9) X10^6/uL Hgb 15.8 (13.5-17.5) g/dL Hct 45.6 (41-53) % MCV 89.4 (80-100) fL MCH 31.0 (26-34) PG MCHC 34.7 (30-36) % RDW 13.2 (11.6-14.8) % Plt Count 180 (150-400) X10^3/uL Neut % (Auto) 59.9 (50-75) % Lymph % (Auto) 25.9 (25-40) % [place] % (Auto) 10.5 (3-14) % Eos % (Auto) 2.6 (2-4) % Baso % (Auto) 1.1 (0-2) % Neut # (Auto) 3200 (4238-2034) /uL Lymph # (Auto) 1400 (1869-7447) /uL [place] # (Auto) 600 (0-900) /uL Eos # (Auto) 100 (0-450) /uL Baso # (Auto) 100 (0-100) /uL PT 11.3 (9.4-12.5) SECONDS INR 1.0 (0.9-1.3) APTT 34 (25.1-36.5) SECONDS Sodium 136 L (137-145) mmol/L Potassium 3.5 (3.4-5.1) mmol/L Chloride 103 (98-107) mmol/L Carbon Dioxide 29 (22-32) mmol/L BUN 22 H (9-20) mg/dL Creatinine 1.24 (0.66-1.25) mg/dL Estimated GFR > 60 (>60) mL/min BUN/Creatinine Ratio 17.7 (6-22) Glucose 112 H (80-110) mg/dL Calcium 9.3 (8.4-10.2) mg/dL Magnesium 2.0 (1.6-2.3) mg/dL Total Bilirubin 0.6 (0.2-1.3) mg/dL AST 42 (17-59) IU/L ALT 46 (<50) IU/L Alkaline Phosphatase 93 (38-126) U/L Total Creatine Kinase 228 H 216 H (55-170) U/L Troponin I < 0.012 < 0.012 (0.01-0.034) ng/mL NT-Pro-B Natriuret Pep 34 (<125) pg/mL Total Protein 6.7 (6.3-8.2) g/dL Albumin 4.2 (3.5-5.0) g/dL Globulin 2.5 (1.7-4.1) g/dL Albumin/Globulin Ratio 1.7 (1.0-2.8) Lipase 76 (23-300) U/L Imaging Data Chest x-ray: Radiologist's Impression: PROCEDURE: XR CHEST 1V INDICATIONS: chest pain TECHNIQUE: One view of the chest was acquired. COMPARISON: [facility], , XR CHEST 1V, 07/08/2019, 23:28. FINDINGS: Surgical changes and devices: None. Lungs and pleura: Lungs are clear. No pleural effusions or pneumothorax. Mediastinum: Mediastinal contours appear normal. Heart size is normal. Bones and chest wall: No suspicious bony lesions. Overlying soft tissues appear unremarkable. IMPRESSION: No acute cardiopulmonary abnormality is seen. ECG Data Attestation: I personally reviewed and interpreted this ECG as follows: Interpretation: Sinus bradycardia Ventricular rate of 50 Left axis deviation Incomplete bundle-branch block normal QRS LVH No ST T wave changes MDM Narrative Medical decision making narrative: Patient was had 3 days of persistent symptoms with sometimes being worse than others. 2- troponins. Nonischemic EKG. Chest x-ray is unremarkable. Patient has had exertional symptoms. He does have a history of hypertension and hyperlipidemia. He states his primary doctors told him in the past that he should get a stress test for other reasons. He was never followed through with this. He did have a stress test approximately 10 years ago. We discussed that he should seriously consider having a stress test. We discussed admission to the hospital to have the stress test done on a relatively quicker basis versus following up as an outpatient. I recommended admission to the hospital with the patient stated that he would like to be discharged and follow up with his primary doctor as an outpatient. Will discharge patient home with return precautions. He expressed understanding and agreement with the plan. Discharge Plan Departure Patient Disposition: Home Clinical Impression: Atypical chest pain Instructions: DI for Atypical Chest Pain Activity Restrictions/Additional Instructions: I do recommend that you contact your primary care doctor for a follow-up to discuss the indications for a stress test. Take all of your medications as directed. Return to the emergency department for new or worsening symptoms. Prescriptions: No Action losartan 50 MG tablet 50 mg PO QDAY Qty: 0 celecoxib 200 mg capsule 200 mg PO DAILY Qty: 90 2RF doxycycline hyclate 100 mg capsule 100 mg PO BID Qty: 22 0RF cephalexin 500 mg capsule 500 mg PO TID Qty: 42 0RF methylprednisolone [Medrol (Eusebio)] 4 mg tablets,dose pack See Rx Instructions .ROUTE .COMPLEX Qty: 21 0RF Rx Instructions: orally per package directions cyclobenzaprine 10 mg tablet 10 mg PO TID PRN (Reason: muscle spasm) Qty: 30 0RF atorvastatin 20 mg tablet 20 mg PO DAILY hydrochlorothiazide 12.5 mg tablet 12.5 mg PO DAILY Referrals: Boni Lorenzo MD [Primary Care Provider] - Stand Alone Forms: Patient Portal/API/Survey
== END 2024-08-11 22:35 | disposition home or self-care (01) ==
PROVIDERS: Emergency Provider Emergency Medicine; Family Provider Family Medicine; PCP Family Medicine
DX: R07.89 Other chest pain (principal); I10 Essential (primary) hypertension; E78.5 Hyperlipidemia, unspecified
CPT/HCPCS: 36415; 71045; 80053; 82550; 83690; 83735; 83880; 84484; 85025; 85610; 85730; 93005; 99284